=== PATIENT | male | born 1975 | race Caucasian/White ===

== ENCOUNTER 2020-08-31 15:19 | Emergency (ER) | payer SELFPAY ==
--- NOTE | 2020-08-31 | XR_ITS ---
EXAMINATION: RIGHT LOWER LEG AND LIMITED RIGHT ANKLE CLINICAL INFORMATION: Injury COMPARISON: None TECHNIQUE: 2 views of the right lower leg and oblique view of the right ankle FINDINGS: Right lower leg: Bone alignment is normal. No fracture or dislocation is seen. The joint spaces are normal. There is soft tissue ossifications adjacent to the tibial tubercle suggestive of old moderate disease. Soft tissues are otherwise unremarkable. Right ankle: Oblique view of the right ankle shows no fracture or dislocation. The ankle mortise is normal. Soft tissues are normal. XR/XR tibia fibula RT 2V IMPRESSION: Right lower leg: No acute fracture or dislocation. Evidence of old [place]-Schlatter's disease of the tibial tubercle. Right ankle: Unremarkable limited oblique view of the right ankle
--- NOTE | 2020-08-31 | XR_ITS ---
EXAMINATION: RIGHT LOWER LEG AND LIMITED RIGHT ANKLE CLINICAL INFORMATION: Injury COMPARISON: None TECHNIQUE: 2 views of the right lower leg and oblique view of the right ankle FINDINGS: Right lower leg: Bone alignment is normal. No fracture or dislocation is seen. The joint spaces are normal. There is soft tissue ossifications adjacent to the tibial tubercle suggestive of old moderate disease. Soft tissues are otherwise unremarkable. Right ankle: Oblique view of the right ankle shows no fracture or dislocation. The ankle mortise is normal. Soft tissues are normal. XR/XR ankle RT 2V IMPRESSION: Right lower leg: No acute fracture or dislocation. Evidence of old [place]-Schlatter's disease of the tibial tubercle. Right ankle: Unremarkable limited oblique view of the right ankle
[2020-08-31 16:04] VITALS: BP 96/79; PULSE 117; RESP 20; TEMP 37.1; O2SAT 97; BMI 46.9
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
--- NOTE | 2020-08-31 17:34 | XR_ITS ---
EXAMINATION: XR FOOT, RIGHT CLINICAL INFORMATION: Injury. COMPARISON: None TECHNIQUE: AP, lateral, and oblique views of the right foot. FINDINGS: The bones and soft tissues are normal. No fracture. Alignment is anatomic. Joint spaces are maintained. XR/XR foot RT min 3V IMPRESSION: Normal right foot.
[2020-08-31] MEDS: Ibuprofen 600 MG TABLET PO (17:40)
--- NOTE | 2020-08-31 18:40 | PC.NURSE ---
PT WAS BEING RUDE ABOUT WAIT AND HE WAS TOLD HIS SECOND IMAGING WAS NOT READY PT WAS ROCKING BACK AND FORTH IN CHAIR AND THEN DECIDED TO LAY ON FLOOR CHARGE NURSE TOLD HIM TO GET UP AND NOT LAY ON FLOOR AND THEN PCT JEFERSON WITNESS PT LEAVING.
== END 2020-08-31 18:43 | disposition left against medical advice (07) ==
PROVIDERS: Emergency Provider Emergency Medicine
DX: M79.604 Pain in right leg (principal); M25.571 Pain in right ankle and joints of right foot; M79.671 Pain in right foot
CPT/HCPCS: 73590; 73600; 73630; 99283

== ENCOUNTER 2021-08-06 14:17 | Emergency (ER) | payer SELFPAY ==
[2021-08-06 14:20] VITALS: BP 128/82; PULSE 104
[2021-08-06 14:38] VITALS: BP 119/62; PULSE 98; RESP 16; TEMP 37.2; O2SAT 98; BMI 21.1
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
[2021-08-06 16:48] VITALS: BP 128/68; PULSE 72; RESP 16
== END 2021-08-06 16:49 | disposition home or self-care (01) ==
PROVIDERS: Emergency Provider Emergency Medicine
DX: T40.1X1A Poisoning by heroin, accidental (unintentional), initial encounter (principal); R40.4 Transient alteration of awareness; Y92.810 Car as the place of occurrence of the external cause
CPT/HCPCS: 96374; 99283; 99284

== ENCOUNTER 2022-09-16 09:11 | Emergency (ER) | payer SELFPAY ==
[2022-09-16 09:12] VITALS: BP 150/90; PULSE 86; RESP 16; TEMP 35.7; O2SAT 99; BMI 20.9
--- NOTE | 2022-09-16 09:23 | ED.GENADULT ---
HPI - General Adult General Chief complaint: General Medical Stated complaint: dental pain Time Seen by Provider: 09/16/22 09:23 Source: patient Mode of arrival: ambulatory Limitations: no limitations History of Present Illness HPI narrative: Patient is a 47 year old assigned male at with a history of cigarette smoking presenting to the emergency department today with right sided mouth pain and swelling. Patient states that the right side of his mouth has been swelling and painful for the last week. Patient denies any dizziness, lightheadedness, abdominal pain, nausea, vomiting, fever, chills, blurry vision, double vision, loss of vision, chest pain, difficulty breathing, shortness of breath, back pain, night sweats, pain with urination, increased urinary frequency, increased urinary urgency, blood in his urine or stool, syncope or a near syncopal episode, recent trauma or falls, bowel incontinence, bladder incontinence, bowel retention, bladder retention, or any other complaints at this time. Onset (ago): week(s) (1) Location: face, mouth and right Radiation: non-radiation Severity: mild Severity scale (1-10): 2 Relieving factors: none Exacerbating factors: none Associated symptoms: denies other symptoms Treatments prior to arrival: none Related Data Previous Rx's Medication Instructions Recorded naloxone 4 mg/actuation nasal 4 mg intranasal Q2M PRN opioid 08/06/21 spray (Narcan) overdose #2 ea naproxen 500 mg tablet 500 mg PO BID 7 days #14 tabs 09/16/22 penicillin V potassium 500 mg 500 mg PO BID 10 days #20 tabs 09/16/22 tablet Allergies Allergy/AdvReac Type Severity Reaction Status Date / Time No Known Allergies Allergy Verified 08/06/21 14:45 Review of Systems Constitutional: Constitutional: Reports no additional constitutional complaints, Denies chills, Denies fever(s) and Denies night sweats Eyes: Eyes: Reports no additional eye complaints, Denies blurry vision, Denies change in vision, Denies diplopia, Denies eye discharge, Denies loss of vision and Denies eye pain ENT: Denies dizziness and Reports mouth pain Cardiovascular: Cardiovascular: Reports no additional cardiovascular complaints, Denies chest pain, Denies lightheadedness, Denies Loss of Consciousness and Denies dyspnea Respiratory: Respiratory: Reports no additional respiratory complaints and Denies dyspnea Gastrointestinal: Gastrointestinal: Reports no additional gastrointestinal complaints, Denies abdominal pain, Denies melena, Denies hematochezia, Denies change in bowel habits and Denies change in stool character Genitourinary: Genitourinary: Reports no additional male genitourinary complaints, Denies hematuria, Denies oliguria, Denies difficulty urinating, Denies dysuria, Denies urinary frequency, Denies urinary hesitancy, Denies urinary incontinence and Denies urinary urgency Musculoskeletal: Musculoskeletal: Reports no additional musculoskeletal complaints, Denies numbness and Denies tingling Neurologic: Denies dizziness, Denies loss of vision, Denies numbness and Denies tingling Psychiatric: Psychiatric: Reports no additional psychiatric complaints Endocrine: Endocrine: Reports no additional endocrine complaints Hematologic/Lymphatic: Hematologic/Lymphatic: Reports no additional hematologic/lymphatic complaints Allergic/Immunologic: Allergic/Immunologic: Reports no additional allergic/immunologic complaints PMFSH Past Medical History Attestation statement: The following information was validated with the patient. Source: old records reviewed and nursing notes reviewed Medical History No known health problems Social History Social History Advance Directives: No Advance Directives Information Provided: Yes Physical Exam ED Vital Signs: Vital Signs - 24 hr 09/16/22 09:12 Temperature 96.3 F L Pulse Rate 86 Respiratory Rate 16 Blood Pressure 150/90 H Pulse Oximetry 99 Oxygen Delivery Method Room Air BMI result Body Mass Index 20.9 Const General: cooperative, no acute distress, alert and awake Nutritional Appearance: well nourished Orientation/consciousness: patient oriented x3 Limitations: no limitations [facility] Head: Yes normal to inspection and Yes atraumatic Ears: hearing grossly normal bilaterally and external ears normal General nose exam: Normal external nose present, no nasal discharge noted and no epistaxis Face and sinus: Yes normal facial exam, No abrasion and No laceration Mouth: no drooling, no muffled voice and other (minimal swelling to the right cheek) Eyes General: appearance normal, both eyes and all related structures Periorbital: periorbital findings normal Eyelids: Yes eyelids normal Conjunctivae: conjunctivae normal Pupils: Equal, round and reactive pupils present EOM: EOMs intact bilaterally Neck Neck: Yes normal visual inspection, Yes full ROM and Yes no lymphadenopathy Chest Chest palpation & inspection: normal inspection of the chest Resp Effort & Inspection: normal respiratory effort and able to speak in complete sentences Auscultation: clear to auscultation bilaterally Cardio Rate: regular rate Rhythm: regular rhythm GI Inspection: Yes normal to inspection Neuro General: patient oriented x3 and moves all extremities Cranial nerves: Yes Equal, round and reactive pupils present Cognition (Neuro): normal cognition Motor exam (neuro): 5/5 motor strength present throughout Sensory Exam: Normal double simultaneous stimulation for sensation Coordination: [id number] test normal Extrem General: Yes normal to inspection, Yes full ROM and Yes capillary refill normal Psych Appearance: grossly normal Mental Status: mental status grossly normal Affect: normal affect Attitude: cooperative Thought process: Normal thought process present Thought content: Normal thought content present Insight: Good insight present (Psych) Medical Decision Making Medical Decision Making MDM Narrative: Patient is a 47 year old assigned male at with a history of cigarette smoking presenting to the emergency department today with right sided facial swelling. Patient's physical exam showed minimal right cheek swelling but was otherwise unremarkable. I explained my physical exam findings to the patient. I answered all questions asked by the patient. I stressed the importance of the patient taking his medication as prescribed. I stressed the importance of the patient following up with his primary care provider and a dentist. I stressed the importance of the patient returning to the emergency department immediately if his symptoms were to worsen or if he were to develop any dizziness, shortness of breath, difficulty breathing, chest pain, blurry vision, loss of vision, nausea, vomiting, abdominal pain, fever, chills, back pain, or any other complaints. Patient verbalized agreement and understanding with this treatment plan and discharge. Differential Diagnosis Differential Diagnoses: The differential diagnosis associated with the presentation includes facial swelling, dental abscess Discharge Plan Discharge Clinical Impression: Dental abscess Patient Disposition: Home, Self-Care Instructions: Dental Abscess (ED) Additional Instructions: Follow up with your primary care provider. Return to the emergency department immediately if your symptoms worsen or if you develop any dizziness, shortness of breath, difficulty breathing, chest pain, blurry vision, loss of vision, nausea, vomiting, abdominal pain, fever, chills, back pain, or any other complaints. Call or visit any of the clinics below to establish with a dentist: [facility] [address] [place] [id number] [facility] [address] [facility], [address] [address] [place] [address] [facility] [address] [address] [facility] [address] [place] [address] [place] [address] [place] [address] Prescriptions: New penicillin V potassium 500 mg tablet 500 mg PO BID 10 Days Qty: 20 0RF naproxen 500 mg tablet 500 mg PO BID 7 Days Qty: 14 0RF No Action Narcan 4 mg/actuation spray,non-aerosol 4 mg intranasal Q2M PRN (Reason: opioid overdose) Qty: 2 2RF Rx Instructions: spray 1 dose into ONE nostril; alternate nostrils w each dose until help arrives Referrals: [facility] [place] Group] (Call to establish and follow up with a primary care provider. If you already have a primary care provider, please follow up with them. ) [facility] [Provider Group] (Call to establish and follow up with a primary care provider. If you already have a primary care provider, please follow up with them. ) [facility] [Provider Group] (Call to establish and follow up with a primary care provider. If you already have a primary care provider, please follow up with them. ) Interventions: ED Discharge Assessment Last Done: 09/16/22 09:35 Discharge Date/Time: 09/16/22 09:37 Print Language: Georgian
== END 2022-09-16 09:37 | disposition home or self-care (01) ==
PROVIDERS: Emergency Provider Emergency Medicine
DX: K04.7 Periapical abscess without sinus (principal); K08.89 Other specified disorders of teeth and supporting structures
CPT/HCPCS: 99282; 99283

== ENCOUNTER 2024-01-09 12:49 | Emergency (ER) | payer SELFPAY ==
--- NOTE | ~2024-01-09 | US_ITS ---
EXAMINATION: US VENOUS ULTRASOUND WITH DOPPLER LOWER EXTREMITY, LEFT CLINICAL INFORMATION: Edema. COMPARISON: None available. TECHNIQUE: Ultrasound of the deep veins is performed from the hip to the calf with compression sonography and color and pulse Doppler assessment. Spectral analysis with color-flow imaging is performed. FINDINGS: There is normal venous compression and respiratory variation and augmented flow. The visualized common femoral vein, superficial femoral vein, profunda femoral vein, popliteal vein, and the trifurcation region shows no evidence of deep venous thrombosis. There is no significant popliteal fossa cyst. If the patient's symptoms persist, followup ultrasound in 5 days 7 days might be of value to exclude proximal propagation from a non-visualized calf vein. US/US venous duplex LE LT IMPRESSION: No DVT demonstrated in the left lower extremity.
[2024-01-09 13:39] VITALS: BP 164/85; PULSE 98; RESP 18; O2SAT 97; BMI 21.2
[2024-01-09 13:52] LABS: MANUAL DIFF FLAG NO
[2024-01-09 13:56] LABS: Basophils Percent Auto 0.3 % (0-2); Eosinophils Percent Auto 0.4 % (0-4); Hematocrit 39.9 % (42.0-52.0); Hemoglobin 14.2 g/dl (14.0-18.0); Imm Gran Abs Auto 0.03 X10*3/uL (0.00-0.03); Imm Gran Pct Auto 0.3 % (0.0-0.4); Lymphocytes Absolute Auto 1.8 X10*3/uL (1.2-4.9); Lymphocytes Percent Auto 16.5 % (20-40); Mean Corpuscular HGB Conc 35.6 g/dl (31.0-36.0); Mean Corpuscular Hemoglobin 35.8 pg (27.0-33.0); Mean Corpuscular Volume 100.5 fL (80.0-98.0); Mean Platelet Volume 9.2 fL (9.4-12.4); Monocytes Absolute Auto 1.2 X10*3/uL (0.1-1.2); Monocytes Percent Auto 10.9 % (2-11); Neutrophils Absolute Auto 7.7 x10*3/uL (2.0-8.3); Neutrophils Percent Auto 71.6 % (45-73); Platelet Count 216 X10*3/uL (160-400); Red Blood Count 3.97 X10*6/uL (4.60-5.80); Red Cell Distribution Width 11.9 % (11.0-16.0); White Blood Count 10.8 X10*3/uL (4.8-10.8)
[2024-01-09 14:19] LABS: Alanine Aminotransferase 22 U/L (0-40); Albumin Level 4.5 g/dL (3.5-5.0); Alkaline Phosphatase 106 U/L (39-117); Anion Gap 18 (12-20); Aspartate Amino Transferase 30 U/L (5-37); Bilirubin Total 0.8 mg/dL (0.0-1.0); Blood Urea Nitrogen 25 mg/dL (9-16); Calcium 10.2 mg/dL (8.4-10.2); Carbon Dioxide 28 mmol/L (22-29); Chloride 96 mmol/L (96-108); Creatinine Clr Calc Pharmacy 92.1; Estimated Glomerular Filt Rate > 60; Glucose Random 102 mg/dL (60-115); Lipase 18 U/L (8-78); Magnesium 1.9 mg/dL (1.6-2.6); Sodium 138 mmol/L (135-145); Total Protein 7.8 g/dL (6.5-8.0)
--- NOTE | 2024-01-09 14:45 | ED.LOWEXIN ---
HPI - Extremity Injury (Lower) General Chief Complaint: Extremity Injury, Lower Stated Complaint: L Leg Pain No Injury Related Data Previous Rx's ?Medication ?Instructions ?Recorded naloxone 4 mg/actuation nasal 4 mg intranasal Q2M PRN opioid 08/06/21 spray (Narcan) overdose #2 ea naproxen 500 mg tablet 500 mg PO BID 7 days #14 tabs 09/16/22 penicillin V potassium 500 mg 500 mg PO BID 10 days #20 tabs 09/16/22 tablet Allergies Allergy/AdvReac Type Severity Reaction Status Date / Time No Known Allergies Allergy Verified 01/09/24 13:42 [facility] Past Medical History Medical History No known health problems Social History Social History Advance Directives: No Advance Directives Information Provided: No Physical Exam Vital Signs: Vital Signs: Last Vital Signs Pulse 98 01/09/24 13:39 Resp 18 01/09/24 13:39 BP 164/85 H 01/09/24 13:39 Pulse Ox 97 01/09/24 13:39 O2 Del Method Room Air 01/09/24 13:39 BMI result Body Mass Index 21.2 Course Course Course Narrative: This is a Rapid Medical Examination (RME) performed by Wandy Sanders PA-C in triage. Full HPI, ROS, assessment and treatment plan per primary provider in the Main ED. 48 yo male here for eval of left thigh pain/ swelling x1 week. denies recent travel, long car rides. denies injury, trauma. also endorses b/l hand cramping. states it feels like i got hit by a bat . taking aspirin without relief. no upper respiratory symptoms. no sick contacts. exam limited in triage due to patients clothing. Plan: labs, cpk, venous duplex ordered. Reevaluation(s) Reevaluation #1: Patient left the ED without completing treatment. Medical Decision Making Lab Data 01/09/24 13:48 01/09/24 13:48 Labs: Lab Results 01/09/24 Range/Units 13:48 WBC 10.8 (4.8-10.8) X10*3/uL RBC 3.97 L (4.60-5.80) X10*6/uL Hgb 14.2 (14.0-18.0) g/dl Hct 39.9 L (42.0-52.0) % MCV 100.5 H (80.0-98.0) fL MCH 35.8 H (27.0-33.0) pg MCHC 35.6 (31.0-36.0) g/dl RDW 11.9 (11.0-16.0) % Plt Count 216 (160-400) X10*3/uL MPV 9.2 L (9.4-12.4) fL Immature Gran % (Auto) 0.3 (0.0-0.4) % Neut % (Auto) 71.6 (45-73) % Lymph % (Auto) 16.5 L (20-40) % [place] % (Auto) 10.9 (2-11) % Eos % (Auto) 0.4 (0-4) % Baso % (Auto) 0.3 (0-2) % Lymph # (Auto) 1.8 (1.2-4.9) X10*3/uL [place] # (Auto) 1.2 (0.1-1.2) X10*3/uL Eos # (Auto) 0.0 (0.0-0.4) X10*3/uL Baso # (Auto) 0.0 (0.0-0.2) X10*3/uL Abs Immat Gran (auto) 0.03 (0.00-0.03) X10*3/uL Absolute Neuts (auto) 7.7 (2.0-8.3) x10*3/uL Absolute Nucleated RBC 0.000 (0.0-0.012) X10*3/uL Nucleated RBC % (auto) 0.0 (0.0-0.2) /100WBC Sodium 138 (135-145) mmol/L Potassium 4.0 (3.3-5.1) mmol/L Chloride 96 (96-108) mmol/L Carbon Dioxide 28 (22-29) mmol/L Anion Gap 18 (12-20) BUN 25 H (9-16) mg/dL Creatinine 0.81 (0.5-1.4) mg/dL Estim Creat Clear Calc 92.1 Estimated GFR > 60 Random Glucose 102 (60-115) mg/dL Calcium 10.2 (8.4-10.2) mg/dL Magnesium 1.9 (1.6-2.6) mg/dL Total Bilirubin 0.8 (0.0-1.0) mg/dL AST 30 (5-37) U/L ALT 22 (0-40) U/L Alkaline Phosphatase 106 (39-117) U/L Total Creatine Kinase 139 (38-174) U/L Total Protein 7.8 (6.5-8.0) g/dL Albumin 4.5 (3.5-5.0) g/dL Lipase 18 (8-78) U/L Discharge Plan Discharge Clinical Impression: Left thigh pain Patient Disposition: Left W/O Completing Treatment Prescriptions: No Action penicillin V potassium 500 mg tablet 500 mg PO BID 10 Days Qty: 20 0RF naproxen 500 mg tablet 500 mg PO BID 7 Days Qty: 14 0RF Narcan 4 mg/actuation spray,non-aerosol 4 mg intranasal Q2M PRN (Reason: opioid overdose) Qty: 2 2RF Rx Instructions: spray 1 dose into ONE nostril; alternate nostrils w each dose until help arrives Discharge Date/Time: 01/09/24 19:35
--- NOTE | 2024-01-09 19:26 | PC.NURSE ---
No response in the WR @ 1914. T/w calling cell phone listed but line busy.
== END 2024-01-09 19:35 | disposition left against medical advice (07) ==
PROVIDERS: Physician Assistant Medical; Emergency Provider Emergency Medicine
DX: M79.652 Pain in left thigh (principal); R60.0 Localized edema; Z79.899 Other long term (current) drug therapy
CPT/HCPCS: 36415; 80053; 82550; 83690; 83735; 85025; 93971; 99281; 99284

== ENCOUNTER 2024-10-28 11:26 | Outpatient (REF) | payer MEDICAID, SELFPAY ==
[2024-10-28 13:15] LABS: MANUAL DIFF FLAG NO
[2024-10-28 13:36] LABS: Basophils Percent Auto 0.4 % (0-2); Eosinophils Absolute Auto 0.2 X10*3/uL (0.0-0.4); Eosinophils Percent Auto 1.9 % (0-4); Hematocrit 45.9 % (42.0-52.0); Hemoglobin 15.8 g/dl (14.0-18.0); Imm Gran Abs Auto 0.04 X10*3/uL (0.00-0.03); Imm Gran Pct Auto 0.5 % (0.0-0.4); Lymphocytes Absolute Auto 2.2 X10*3/uL (1.2-4.9); Lymphocytes Percent Auto 27.3 % (20-40); Mean Corpuscular HGB Conc 34.4 g/dl (31.0-36.0); Mean Corpuscular Volume 98.7 fL (80.0-98.0); Mean Platelet Volume 10.2 fL (9.4-12.4); Monocytes Absolute Auto 0.7 X10*3/uL (0.1-1.2); Monocytes Percent Auto 9.1 % (2-11); Neutrophils Absolute Auto 4.9 x10*3/uL (2.0-8.3); Neutrophils Percent Auto 60.8 % (45-73); Platelet Count 313 X10*3/uL (160-400); Red Blood Count 4.65 X10*6/uL (4.60-5.80); Red Cell Distribution Width 12.2 % (11.0-16.0); White Blood Count 8.1 X10*3/uL (4.8-10.8)
[2024-10-28 13:37] LABS: INTERNATIONAL NORM RATIO 0.8 (0.9-1.1); Prothrombin Time 9.6 SEC (10.9-12.4)
[2024-10-28 14:02] LABS: Alanine Aminotransferase 59 U/L (0-40); Albumin Level 4.4 g/dL (3.5-5.0); Alkaline Phosphatase 113 U/L (39-117); Aspartate Amino Transferase 39 U/L (5-37); Bilirubin Direct < 0.2 mg/dL (0.0-0.5); Bilirubin Total 0.2 mg/dL (0.0-1.0); Blood Urea Nitrogen 20 mg/dL (9-16); Estimated Glomerular Filt Rate > 60
--- OUTSIDE RECORDS SUMMARY | 2024-10-28 14:05 | XMS_ITS | Encounter Summary ---
Author Organization [employer] Address [address] [facility] [address] [place] [address] Care Team Providers Care Mobile Device Developer Name Role Phone Unavailable Primary Care Provider Unavailabl e Encounter Details Date Type Department Care Team (Latest Contact Info) Description 10/28/2024 Travel Social History Tobacco Use Types Packs/Day Years Used Date Smoking Tobacco: Never Assessed Sex and Gender Information Value Date Recorded Sex Assigned at Male 10/28/2024 10:18 AM EST Legal Sex Male 9:01 AM EST Gender Identity Male 10/28/2024 10:18 AM EST Sexual Orientation Straight 10/28/2024 10 :18 AM EST documented as of this encounter Plan of Treatment Upcoming Encounters Date Type Department Care Team (Late st Contact Info) Description 11/04/2024 10:00 AM EST Office Visit [facility] [address] [place] [address] Rafael Prieto MD [address] [place] [address] documented as of this encounter Visit Diagnoses Not on filedocumented in this encounter
--- OUTSIDE RECORDS SUMMARY | 2024-10-28 14:05 | XMS_ITS | Clinical Summary ---
Author Organization [employer] Address [address] [facility] [address] [place] [address] Care Team Providers Care Shop Service Technician Name Role Phone Unavailable Primary Care Provider Unavailabl e Allergies No known active allergies Medications * This document contains information received from the source organization and may not represent a complete record from that organization. naltrexone (Depade) 50 MG tabletIndication s:Alcohol use disorder, severe, dependence (CMS/HCC) Take 1/2 tablet PO once daily x 2 days, then 1 pill PO once daily. May take with food. 15 tablet 10/28/2024 Active Active Problems Problem Noted Date Diagnosed Date Alcohol use disorder 10/28/2024 History of substance use 10/28/2024 Encounters * This document contains information received from the source organization and may not represent a complete record from that organization. Date Type Department Care Team Description 10/28/2024 11:00 AM EST Office Visit [facility] [address] [place] [phone] Rafael Prieto MD Alcohol abuse, uncomplicated (Primary Dx); Alcohol use disorder, severe, dependence (CMS/HCC); Tobacco use disorder 10/28/2024 Travel 10/21/2024 Patient Outreach [facility] [address] [place] [phone] Alejandro Jaime Recovery Supports from Last 3 Months Social History Tobacco Use Types Packs/Day Years Used Date Smoking Tobacco: Never Assessed Sex and Gender Information Value Date Recorded Sex Assigned at Male 10/28/2024 10:18 AM EST Legal Sex Male 9:01 AM EST Gender Identity Male 10/28/2024 10:18 AM EST Sexual Orientation Straight 10/28/2024 10 :18 AM EST Plan of Treatment Upcoming Encounters Date Type Department Care Team ([facility] st Contact Info) Description 11/04/2024 10:00 AM EST Office Visit [facility] [address] [place] [phone] Rafael Prieto MD [address] [place] [address] Health Maintenance Due Date Last Done Comments CT Colonography 1973 Colonoscopy 1973 Colorectal Cancer Screening 1973 Depression Screening 1973 FIT DNA/Cologuard 1973 FIT 1973 FOBT 1973 HIV Screening 1973 Lipid Panel 1973 SDOH Screening 1973 Sigmoidoscopy 1973 Alcohol/Substance Use Screening 1985 Tobacco Screening 1985 Family Planning (PISQ) 1988 Hepatitis C Screening 1991 Hepatitis A Vaccines (1 of 2 - Risk 2-dose series) 1992 Hepatitis B Vaccines (1 of 3 - 19+ 3-dose series) 1992 Pneumococcal Vaccine: 50+ Ye ars (1 of 2 - PCV) 1992 DTaP/Tdap/Td Vaccines (2 - T d or Tdap) 06/13/2022 06/13/2012 Zoster Vaccines (1 of 2) 2023 COVID-19 Vaccine ( - 2023-2 5 season) 2024 Influenza Vaccine (#1) 2024 RSV Patients and Pa tients Aged 60 years or older (1 - 1-dose 75+ series) 2048 HIB Vaccines Aged Out No longer eligi ble based on patient's age to complete this topic HPV Vaccines Aged Out No longer eligi ble based on patient's age to complete this topic IPV Vaccines Aged Out No longer eligi ble based on patient's age to complete this topic Meningococcal Vaccine Aged Out No husam josee eligible based on patient's age to complete this topic RSV under 20 months Aged Out No longe r eligible based on patient's age to complete this topic Rotavirus Vaccines Aged Out No longer eligible based on patient's age to complete this topic Procedures Procedure Name Priority Date/Time Associated Diagnosis Comments PROTHROMBIN TIME-INR Routine 10/28/2024 11:29 AM EST Alcohol use disorder, severe, dependence (CMS/HCC) CBC WITH AUTO DIFFERENTIAL Routine 10/28/2024 11:29 AM EST Alcohol abuse, uncomplicated UREA NITROGEN (BUN) Routine 10/28/2024 1 1:29 AM EST Alcohol abuse, uncomplicated CREATININE, SERUM Routine 10/28/2024 11: 29 AM EST Alcohol abuse, uncomplicated HEPATIC FUNCTION PANEL Routine 10/28/2024 11:29 AM EST Alcohol abuse, uncomplicated POCT MARY ELLEN-14 URINE DRUG SCREEN Routine 10/28/2024 10:59 AM EST Alcohol abuse, uncomplicated from Last 3 Months Results * Creatinine, Serum (10/28/2024 11:29 AM EST) Creatinine, Serum 0.82 0.5 - 1.4 mg/dL [facility] Estimated Glomerular Filt Rate >60 [facility] Comment:Chronic Kidney Disea se: Estimated GFR < 60 mL/min/[id number] Kidney Disease: Estimated GFR < 15 mL/min/1.73m2 Blood 10/28/2024 11:2 9 AM EST 10/28/2024 1:06 PM EST us Rafael Prieto MD LAB BLOOD ORDERABLES Final Res ult [facility] [place] [phone] * (ABNORMAL) CBC auto differential (10/28/2024 11:29 AM EST) White Blood Count 8.1 4.8 - 10.8 X10*3/uL [facility] Red Blood Count 4.65 4.60 - 5.80 X10*6/uL [facility] Hemoglobin 15.8 14.0 - 18.0 g/dl [facility] Hematocrit 45.9 42.0 - 52.0 % [facility] Mean Corpuscular Volume 98.7(H) 80.0 - 98.0 fL [facility] Mean Corpuscular Hemoglobin 34.0(H) 27.0 - 33.0 pg [facility] Mean Corpuscular HGB Conc 34.4 31.0 - 36.0 g/dl [facility] Red Cell Distribution Width 12.2 11.0 - 16.0 % [facility] Platelet Count 313 160 - 400 X10*3/uL [facility] Mean Platelet Volume 10.2 9.4 - 12.4 fL [facility] Neutrophils Percent Auto 60.8 45 - 73 % [facility] Imm Gran Pct Auto 0.5(H) 0.0 - 0.4 % [facility] Lymphocytes Percent Auto 27.3 20 - 40 % [facility] Monocytes Percent Auto 9.1 2 - 11 % [facility] Eosinophils Percent Auto 1.9 0 - 4 % [facility] Basophils Percent Auto 0.4 0 - 2 % [facility] NRBC Pct Auto 0.0 0.0 - 0.2 /100WBC [facility] Neutrophils Absolute Auto 4.9 2.0 - 8.3 x10*3/uL [facility] Imm Gran Abs Auto 0.04(H) 0.00 - 0.03 X10*3/uL [facility] Lymphocytes Absolute Auto 2.2 1.2 - 4.9 X10*3/uL [facility] Monocytes Absolute Auto 0.7 0.1 - 1.2 X10*3/uL [facility] Eosinophils Absolute Auto 0.2 0.0 - 0.4 X10*3/uL [facility] Basophils Absolute Auto 0.0 0.0 - 0.2 X10*3/uL [facility] NRBC Abs Auto 0.000 0.0 - 0.012 X10*3/uL [facility] Blood Venous blood specimen / Unknown 10/28/2024 11:29 AM EST 10/28/2024 1:08 PM EST Rafael Prieto MD LAB BLOOD ORDERABLES Final Res ult Performing Organization Address [facility]/ZIP Co de Phone Number [facility] [address] [place] [phone] * (ABNORMAL) Prothrombin Time-INR (10/28/2024 11:29 AM EST) Prothrombin Time 9.6(L) 10.9 - 12.4 SEC [facility] INTERNATIONAL NORM RATIO 0.8(L) 0.9 - 1.1 [facility] Comment:INTERNATIONAL NORMAL IZED RATIO (INR) REFERENCE RANGES Reference RangeFor patients not on anticoagulant therapy: 0.9 - 1.1INR ranges for oral anticoagulanttherapy:For prevention and treatment of venous thrombosis and pulmonary embolism: 2.0 - 3.0For acute myocardial infarction with aspirin therapy: 2.0 - 3.0For acute myocardial infarction without aspirin therapy: 3.0 - 4.0For patients with mechanical prosthetic heart valves: 2.5 - 3.5 Blood Venous blood specimen / Unknown 10/28/2024 11:29 AM EST 10/28/2024 1:08 PM EST Rafael Prieto MD LAB BLOOD ORDERABLES Final Res ult Performing Organization Address [facility] Co de Phone Number [facility] [address] [place] [phone] * (ABNORMAL) BUN (Blood Urea Nitrogen) (10/28/2024 11:29 AM EST) Urea Nitrogen (BUN) 20(H) 9 - 16 mg/dL [facility] Blood Venous blood specimen / Unknown 10/28/2024 11:29 AM EST 10/28/2024 1:06 PM EST Rafael Prieto MD LAB BLOOD ORDERABLES Final Res ult Performing Organization Address City/[facility]/ZIP Co de Phone Number [facility] [address] [place] [phone] * (ABNORMAL) Hepatic Function Panel (10/28/2024 11:29 AM EST) Bilirubin, Total 0.2 0.0 - 1.0 mg/dL [facility] Bilirubin, Direct <0.2 0.0 - 0.5 mg/dL [facility] Aspartate Amino Transferase 39(H) 5 - 37 U/L [facility] Alanine Aminotransferase 59(H) 0 - 40 U/L [facility] Total Protein 8.0 6.5 - 8.0 g/dL [facility] Albumin Level 4.4 3.5 - 5.0 g/dL [facility] Alkaline Phosphatase 113 39 - 117 U/L [facility] Blood Venous blood specimen / Unknown 10/28/2024 11:29 AM EST 10/28/2024 1:06 PM EST Rafael Prieto MD LAB BLOOD ORDERABLES Final Res ult [facility] [address] [place] [phone] * POCT MARY ELLEN-14 Urine Drug Screen (10/28/2024 10:59 AM EST) THC Negative Cocaine Screen, Urine Negative Opiate Screen, Urine Negative Methamphetamine Screen Urine Negative Amphetamine Screen, Urine Negative Benzodiazepines Screen, Urine Negative Barbiturate Screen, Urine Negative Methadone Screen, Urine Negative Buprenophine Screen, Urine Negative TCA, Urine Negative MDMA Urine Negative ng/mL Oxycodone Screen, Urine Negative Phencyclidine (PCP), Urine Negative Propoxyphene, Urine Negative Fentanyl, Urine Negative Urine Urine specimen obtained by clean catch procedure / Unknown 10/28/2024 10:59 AM EST us Rafael Prieto MD POINT OF CARE TEST ENTER/EDIT ORDERABLES Final Result from Last 3 Months Insurance [facility] C3
--- OUTSIDE RECORDS SUMMARY | 2024-10-28 14:05 | XMS_ITS | Encounter Summary ---
Author Organization [employer] Address [address] [facility] [address] [place] [address] Care Team Providers Care Sheet Heater Helper Name Role Phone Unavailable Primary Care Provider Unavailabl e Reason for Visit * Reason Comments AUD NEW PT Encounter Details Date Type Department Care Team (Latest Contact Info) Description 10/28/2024 11:00 AM EST Office Visit [facility] [address] [place] [phone] Rafael Prieto MD [address] [place] [address] [phone] Alcohol abuse, uncomplicated (Primary Dx); Alcohol use disorder, severe, dependence (CMS/HCC); Tobacco use disorder Social History Tobacco Use Types Packs/Day Years [...] Description 11/04/2024 10:00 AM EST Office Visit [facility] [address] [place] [phone] Rafael Prieto MD [address] [place] [address] [phone] Scheduled Orders Name Type Priority Associated Diagnoses Orde r Schedule Hepatitis C Antibody with Reflex to HCV, RNA, Quantitative, Real-Time PCR Lab Routine Alcohol abuse, uncomplicated Expected: 10/28/2024 (Approximate), Expires: 10/28/2025 Hepatitis B Core Antibody, Total Lab Routine Alcohol abuse, uncomplicated Expected: 10/28/2024 (Approximate), Expires: 10/28/2025 Hepatitis A Antibody, Total Lab Routine Alcohol abuse, uncomplicated Expected: 10/28/2024 (Approximate), Expires: 10/28/2025 T-SPOT??.TB Lab Routine Alcohol abuse, uncomplicated Expected: 10/28/2024 (Approximate), Expires: 10/28/2025 HIV-1/2 Antigen and Antibodies, Fourth Generation, with Reflexes Lab Routine Alcohol abuse, uncomplicated Expected: 10/28/2024 (Approximate), Expires: 10/28/2025 RPR (Monitor) with Reflex to??Titer Lab Routine Alcohol abuse, uncomplicated Expected: 10/28/2024, Expires: 10/28/2025 Hepatitis B surface antigen, EIA Lab Routine Alcohol abuse, uncomplicated Expected: 10/28/2024 (Approximate), Expires: 10/28/2025 Hepatitis B Core Antibody, Total Lab Routine Alcohol abuse, uncomplicated Expected: 10/28/2024 (Approximate), Expires: 10/28/2025 documented as of this encounter Procedures Procedure Name Priority Date/Time Associated Diagnosis Comments CREATININE, SERUM Routine 10/28/2024 11: 29 AM EST Alcohol abuse, uncomplicated CBC WITH AUTO DIFFERENTIAL Routine 10/28/2024 11:29 AM EST Alcohol abuse, uncomplicated PROTHROMBIN TIME-INR Routine 10/28/2024 11:29 AM EST Alcohol use disorder, severe, dependence (CMS/HCC) UREA NITROGEN (BUN) Routine 10/28/2024 1 1:29 AM EST Alcohol abuse, uncomplicated HEPATIC FUNCTION PANEL Routine 10/28/2024 11:29 AM EST Alcohol abuse, uncomplicated POCT MARY ELLEN-14 URINE DRUG SCREEN Routine 10/28/2024 10:59 AM EST Alcohol abuse, uncomplicated documented in this encounter Results * (ABNORMAL) Prothrombin Time-INR (10/28/2024 11:29 AM EST) Prothrombin Time 9.6(L) 10.9 - 12.4 SEC [facility] INTERNATIONAL NORM RATIO 0.8(L) 0.9 - 1.1 [facility] Comment:INTERNATIONAL NORMAL IZED RATIO (INR) [...] 11:29 AM EST 10/28/2024 1:08 PM EST us Rafael Prieto MD LAB BLOOD ORDERABLES Final Res ult [facility] [address] [place] [address] [phone] * (ABNORMAL) CBC auto differential (10/28/2024 11:29 AM EST) White Blood Count 8.1 4.8 - 10.8 X10*3/uL [facility] Red Blood Count 4.65 4.60 - 5.80 X10*6/uL [facility] Hemoglobin 15.8 14.0 - 18.0 g/dl [facility] Hematocrit 45.9 42.0 - 52.0 % [facility] Mean Corpuscular Volume 98.7(H) 80.0 - 98.0 fL [facility] Mean Corpuscular Hemoglobin 34.0(H) 27.0 - 33.0 pg [facility] Mean Corpuscular HGB Conc 34.4 31.0 - 36.0 g/dl [facility] Red Cell Distribution Width 12.2 11.0 - 16.0 % [facility] Platelet Count 313 160 - 400 X10*3/uL [facility] Mean Platelet Volume 10.2 9.4 - 12.4 fL [facility] Neutrophils Percent Auto 60.8 45 - 73 % [facility] Imm Gran Pct Auto 0.5(H) 0.0 - 0.4 % [facility] Lymphocytes Percent Auto 27.3 20 - 40 % [facility] Monocytes Percent Auto 9.1 2 - 11 % [facility] Eosinophils Percent Auto 1.9 0 - 4 % [facility] Basophils Percent Auto 0.4 0 - 2 % [facility] NRBC Pct Auto 0.0 0.0 - 0.2 /100WBC [facility] Neutrophils Absolute Auto 4.9 2.0 - 8.3 x10*3/uL [facility] Imm Gran Abs Auto 0.04(H) 0.00 - 0.03 X10*3/uL [facility] Lymphocytes Absolute Auto 2.2 1.2 - 4.9 X10*3/uL [facility] Monocytes Absolute Auto 0.7 0.1 - 1.2 X10*3/uL [facility] Eosinophils Absolute Auto 0.2 0.0 - 0.4 X10*3/uL [facility] Basophils Absolute Auto 0.0 0.0 - 0.2 X10*3/uL [facility] NRBC Abs Auto 0.000 0.0 - 0.012 X10*3/uL [facility] Blood Venous blood specimen / Unknown 10/28/2024 11:29 AM EST 10/28/2024 1:08 PM EST us Rafael Prieto MD LAB BLOOD ORDERABLES Final Res ult Performing Organization Address City/State/[facility] Co de Phone Number [facility] [address] [place] [phone] * (ABNORMAL) BUN (Blood Urea Nitrogen) (10/28/2024 11:29 AM EST) Urea Nitrogen (BUN) 20(H) 9 - 16 mg/dL [facility] Blood Venous blood specimen / Unknown 10/28/2024 11:29 AM EST 10/28/2024 1:06 PM EST Rafael Prieto MD LAB BLOOD ORDERABLES Final Res ult Performing Organization Address City/[facility]/ZIP Co de Phone Number [facility] [address] [place] [phone] * Creatinine, Serum (10/28/2024 11:29 AM EST) Creatinine, Serum 0.82 0.5 - 1.4 mg/dL [facility] Estimated Glomerular Filt Rate >60 [facility] Comment:Chronic Kidney Disea se: Estimated GFR < 60 mL/min/1.60b0Dyomfh Kidney Disease: Estimated GFR < 15 mL/min/1.73m2 Blood 10/28/2024 11:2 9 AM EST 10/28/2024 1:06 PM EST Rafael Prieto MD LAB BLOOD ORDERABLES Final Res ult Performing Organization Address [facility] Co de Phone Number [facility] [address] [place] [phone] * (ABNORMAL) Hepatic Function Panel (10/28/2024 11:29 AM EST) Bilirubin, Total 0.2 0.0 - 1.0 mg/dL [facility] Bilirubin, Direct <0.2 0.0 - 0.5 mg/dL [facility] Aspartate Amino Transferase 39(H) 5 - 37 U/L [facility] Alanine Aminotransferase 59(H) 0 - 40 U/L [facility] Total Protein 8.0 6.5 - 8.0 g/dL [facility] Albumin Level 4.4 3.5 - 5.0 g/dL [facility] Alkaline Phosphatase 113 39 - 117 U/L [facility] Blood Venous blood specimen / Unknown 10/28/2024 11:29 AM EST 10/28/2024 1:06 PM EST Rafael Prieto MD LAB BLOOD ORDERABLES Final Res ult [facility] [address] [place] [phone] * POCT MARY ELLEN-14 Urine Drug [...] OF CARE TEST ENTER/EDIT ORDERABLES Final Result documented in this encounter Visit Diagnoses Diagnosis Alcohol abuse, uncomplicated- Primary Alcohol use disorder, severe, dependence (CMS/HCC) Tobacco use disorder documented in this encounter
--- OUTSIDE RECORDS SUMMARY | 2024-10-28 14:05 | XMS_ITS | Clinical Summary ---
Author Organization [facility] ity Address [address] [place] [address] Care Team Providers Care Director Career Services Name Role Phone Unavailable Primary Care Provider Unavailabl e Social History Tobacco Use Types Packs/Day Years Used Date Smoking Tobacco: Never Assessed Sex and Gender Information Value Date Recorded Sex Assigned at Not on file Legal Sex Male 3:42 PM EDT Gender Identity Not on file Sexual Orientation Not on file Plan of Treatment Health Maintenance Due Date Last Done Comments DTaP,Tdap,and Td Vaccines (1 - Tdap) 1992 Hepatitis B Vaccines (1 of 3 - 19+ 3-dose series) 1992 Pneumococcal Vaccine: 50+ Ye ars (1 of 1 - PCV) 2023 Zoster Vaccines (1 of 2) 2023 COVID-19 Vaccine ( - 2023-2 5 season) 2024 Influenza Vaccine (#1) 2024 Cholesterol Screening (Lipid Panel) 06/29/2024 Colorectal Cancer Screening: Colonoscopy 06/29/2024 Depression Screening 06/29/2024 HIV Screening 06/29/2024 Hepatitis C Screening 06/29/2024 Social Influencers of Health Screening 06/29/2024 HIB Vaccines Aged Out No longer eligi ble based on patient's age to complete this topic HPV Vaccines Aged Out No longer eligi ble based on patient's age to complete this topic Hepatitis A Vaccines Aged Out No long er eligible based on patient's age to complete this topic IPV Vaccines Aged Out No longer eligi ble based on patient's age to complete this topic MMR Vaccines Aged Out No longer eligi ble based on patient's age to complete this topic Meningococcal ACWY Vaccine Aged Out N o longer eligible based on patient's age to complete this topic Meningococcal B Vacine Aged Out No lo nger eligible based on patient's age to complete this topic Pneumococcal Vaccine: Pediat rics (0 to 5 Years) and At-Risk Patients (6 to 64 Years) Aged Out No longer eligible b ased on patient's age to complete this topic RSV Immunization Patients Un lorenza 20 months Aged Out No longer eligible b ased on patient's age to complete this topic Varicella Vaccines Aged Out No longer eligible based on patient's age to complete this topic
--- OUTSIDE RECORDS SUMMARY | 2024-10-28 14:05 | XMS_ITS | Encounter Summary ---
Author Organization [employer] Address [address] [facility] [address] [place] [address] Care Team Providers Care Survey Technologist Name Role Phone Unavailable Primary Care Provider Unavailabl e Reason for Visit * Reason Comments Recovery Supports Encounter Details Date Type Department Care Team (Late st Contact Info) Description 10/21/[address] [facility] [address] [place] [address] [phone] Alejandro Jaime Recovery Supports Social History Tobacco Use Types Packs/Day Years Used Date Smoking Tobacco: Never Assessed Sex and Gender Information Value Date Recorded Sex Assigned at Male 10/28/2024 10:18 AM EST Legal Sex Male 9:01 AM EST Gender Identity Male 10/28/2024 10:18 AM EST Sexual Orientation Straight 10/28/2024 10 :18 AM EST documented as of this encounter Progress Notes * Alejandro Jaime - 10/21/2024 4:06 PM EST I met with Manuel today. Setting: in person at [facility] Recovery Wellness Goals worked on: Social Stability Action taken/next steps: Referred to medical or behavioral health professional and Assisted with accessing benefits (insurance, SNAP, etc.) Additional comments: The patient arrived at the center seeking help for the program. We were able to change their healthinsurance, and then we scheduled an appointment for him. Additionally, we provided orientation about the center and all the different services we offer. Alejandro Jaime documented in this encounter Plan of Treatment Upcoming Encounters Date Type Department Care Team (Late st Contact Info) Description 11/04/2024 10:00 AM EST Office Visit [facility] [address] [place] [address] [phone] Rafael Prieto MD [address] [place] [address] documented as of this encounter Visit Diagnoses Not on filedocumented in this encounter
[2024-10-29 08:35] LABS: HBc Num1 0.09 S/CO (0.00-0.79); HBsAGNum1 0.25 S/CO (0.00-0.99); HIV AB/AG Nonreactive (Nonreactive); HIV Num 1 0.05 S/CO (0.00-0.99); Hepatitis B Core Antibody Nonreactive (Nonreactive); Hepatitis B Surface Antigen Negative (Negative); ~HepC Num1 0.16 S/CO (0.00-0.79); ~Hepatitis C Antibody Nonreactive (Nonreactive)
[2024-10-29 08:42] LABS: Hepatitis A Antibody IgG Nonreactive (Nonreactive); ~Hepatitis A Antibody IgG 0.31 S/CO (0.00-0.99)
[2024-10-30 09:28] LABS: RPR Rapid Plasma Reagin NON-REACTIVE (NON-REACTIVE)
[2024-10-31 16:38] LABS: TS Negative Control Passed; TS Panel A 0; TS Panel B 0; TS Positive Control Passed; TSpotTB Negative (Negative)
== END 2024-10-28 11:27 | disposition home or self-care (01) ==
LOC: HO.HHCL 11:26
PROVIDERS: Visit Provider Emergency Medicine
DX: F10.10 Alcohol abuse, uncomplicated (principal); F10.20 Alcohol dependence, uncomplicated; Z11.59 Encounter for screening for other viral diseases; Z11.1 Encounter for screening for respiratory tuberculosis
CPT/HCPCS: 36415; 80076; 82565; 84520; 85025; 85610; 86481; 86592; 86704; 86708; 86803; 87340; 87389

== ENCOUNTER 2024-11-11 09:52 | Outpatient (REF) | payer MEDICAID, SELFPAY ==
--- OUTSIDE RECORDS SUMMARY | 2024-11-11 11:17 | XMS_ITS | Encounter Summary ---
Author Organization [employer] Address [address] [place] [address] [address] [place] [address] Care Team Providers Care Capital Project Engineer Name Role Phone Unavailable Primary Care Provider Unavailabl e Reason for Visit * Reason Comments AUD F/U Encounter Details Date Type Department Care Team (Late st Contact Info) Description 11/04/2024 10:00 AM EST Office Visit [facility] [address] [place] [address] Rafael Prieto MD [address] [place] [address] Alcohol use disorder, severe, dependence (CMS/HCC) (Primary Dx); Tobacco use disorder Social History Tobacco Use Types Packs/Day Years Used Date Smoking Tobacco: Never Assessed Depression Answer Date Recorded Patient Health Questionnaire-9 Score 0 10/28/2024 Patient Health Questionnaire-9 Score 0 10/28/2024 Last PHQ-9: Questionnaire Data Not on file 0 10/28/2024 Depression Answer Date Recorded Patient Health Questionnaire-2 Score 0 10/28/2024 Sex and Gender Information Value Date Recorded Sex Assigned at Male 10/28/2024 10:18 AM EST Legal Sex Male 9:01 AM EST Gender Identity Male 10/28/2024 10:18 AM EST Sexual Orientation Straight 10/28/2024 10 :18 AM EST documented as of this encounter Last Filed Vital Signs Vital Sign Reading Time Taken Comments Blood Pressure 144/87 11/04/2024 9:37 AM EST Pulse 95 11/04/2024 9:37 AM EST Temperature 37.2 ??C (98.9 ??F) 11/04/2024 9:37 AM ES T Respiratory Rate 20 11/04/2024 9:37 AM EST Oxygen Saturation - - Inhaled Oxygen Concentration - - Weight - - Height - - Body Mass Index - - documented in this encounter Progress Notes * Rafael Prieto MD - 11/04/2024 10:00 AM EST Patient presents today for AUD f/u. 10/28/24 Alcohol use disorder, severe, dependence (CMS/HCC) 49 y.o male who is here today for evaluation and possible Rx for alcohol use disorder Utox neg DSM 5 AUD 03/13 Vitamins Started drinking heavily ~ 4 years ago, related to his father dying. Was drinking ~ 1 sleeve a day and 2 Guinness beers. He was incarcerated 09/13/24 and released 10 days ago. Detox during incarceration x 5 days. No alcohol since incarceration. Feeling better. Still has some cravings. THC, no other substance use. Smokes 1PPD for many years. Has tried hypnosis in the past and NRT (? patches only). Has been with the same partner for over 10 years. No other sexual partners. No known active medical problems. Denies any past Rx for psychiatric problems. States it's important to connect with a psychiatrist and a therapist as the court has ordered Rx. He's also interested in connecting with a recovery advocate. Needs a PCP. Was on Suboxone till ~ 3 months ago. Stopped cold turkey. Hx of percocet and opioid use. None sincediscontinued Suboxone. No known liver disease, no hx pancreatitis. On medicine for GI reflux many years ago. May have vomited blood once. He has never been Rxed for AUD and is interested in starting Rx now. He and his fiance have an 11 y.o. He and his fiance are seeing each other every day. However, per court, he can go or stay at her place until he receives Rx. 49 y.o. male with AUD, severe, by DSM V criteria. No alcohol since 09/13/24. No WD symptoms. Some cravings. No other substance use. No suboxone x 3 months. Interested in Rx which is also mandated by he court. Agrees to starting Nalrexone and will consider Vivitrol. Possible ADRs reviewed with attention to depression and suicidal to thought and actions to take. Met with Wandy Ramos team therapist and will be referred to Morgan Hodges, psychiatric nurse practitioner. He went to [facility] to connect with a recovery advocate. Given flyer of support groups available. Labs today. Rx folic acid and thiamine on f/u. F/U 1 week. Today 11/04/24 Utox Neg, BAL 0 His fiance is with him. Doing well. No alcohol. No real cravings. Naltrexone without ADRs. Doesn't feel anything but thinks it may be helping. No substance use. Smoking unchanged, ~ 1PPD. Now interested in working on this. Now is able to stay in his home with his fiance and child. To see Rachel Saba team therapist. He now says he does not need a referral to a psych Rxer. Went to [facility] prior to this visit. Still needs a PCP. Asked if his labs included a BS. Objective Physical Exam Constitutional: Appearance: Normal appearance. Neurological: Mental Status: He is alert and oriented to person, place, and time. Psychiatric: Mood and Affect: Mood normal. Behavior: Behavior normal. Thought Content: Thought content normal. Assessment/Plan Alcohol use disorder, severe, dependence (CMS/HCC) Utox Neg, BAL 0 His fiance is with him. Doing well. No alcohol. No real cravings. Naltrexone without ADRs. Doesn't feel anything but thinks it may be helping. No substance use. Smoking unchanged, ~ 1PPD. Now interested in working on this. Now is able to stay in his home with his fiance and child. To see olivia Lo therapist. He now says he does not need a referral to a psych Rxer. Went to [facility] prior to this visit. Still needs a PCP. Asked if his labs included a BS. By hx, doing well. Continues to abstain. Naltrexone without ADRs. Reviewed labs. I did not include HbsAb in initial labs. I [place] [facility] [place] and was told it would be added. Sent new requisition. Informed patient who agrees to return to the lab. I also ordered a FBS and lipid profile. Congratulated on his effort. Rxed folic acid, MV and thiamine. Check on status of new PCP visit next week. F/U 1 week. Tobacco use disorder As above. Reviewed Rx options. Manuel would like to try varenicline. Reviewed and Rxed. Review on f/u. Diagnoses and all orders for this visit: Alcohol use disorder, severe, dependence (CMS/HCC) Tobacco use disorder This information has been disclosed to you from records protected by federal confidentiality rules(42 CFR Part 2). The federal rules prohibit you from making any further disclosure of information in this record that identifies a patient as having or having had a substance use disorder either directly, by reference to publicly available information, or through verification of such identificationby another person unless further disclosure is expressly permitted by the written consent of the individual whose information is being disclosed or as otherwise permitted by (see 2.3.1). The federal rules restrict any use of the information to investigate or prosecute with regard to a crime any patient with a substance use disorder, except as provided at 2.12??(5) and 2.65. documented in this encounter Plan of Treatment Scheduled Orders Name Type Priority Associated Diagnoses Orde r Schedule Hepatitis B Surface Antibody, Qualitative Lab Routine Alcohol use disorder, severe, dependence (CMS/HCC) Expected: 11/04/2024 (Approximate), Expires: 11/04/2025 Glucose, Fasting Lab Routine Alcohol use disorder, severe, dependence (CMS/HCC) Expected: 11/04/2024 (Approximate), Expires: 11/04/2025 Lipid Panel with Reflex to Direct LDL Lab Routine Alcohol use disorder, severe, dependence (CMS/HCC) Expected: 11/04/2024 (Approximate), Expires: 11/04/2025 Vitamin B12/Folate, Serum Panel Lab Routine Alcohol use disorder, severe, dependence (CMS/HCC) Expected: 11/05/2024, Expires: 11/05/2025 documented as of this encounter Procedures Procedure Name Priority Date/Time Associated Diagnosis Comments POCT MARY ELLEN-14 URINE DRUG SCREEN Routine 11/04/2024 9:38 AM EST Alcohol use disorder, severe, dependence (CMS/HCC) POCT ALCOHOL BREATH TEST Routine 11/04/2024 9:38 AM EST Alcohol use disorder, severe, dependence (CMS/HCC) documented in this encounter Results * POCT alcohol breath test manually resulted (11/04/2024 9:38 AM EST) Breath Alcohol 0.00 Breath 11/04/2024 9:38 AM EST us Rafael Prieto MD POINT OF CARE TEST ENTER/EDIT ORDERABLES Final Result * POCT MARY ELLEN-14 Urine Drug Screen (11/04/2024 9:38 AM EST) THC Negative Cocaine Screen, Urine Negative Opiate Screen, Urine Negative Methamphetamine Screen Urine Negative Amphetamine Screen, Urine Negative Benzodiazepines Screen, Urine Negative Barbiturate Screen, Urine Negative Methadone Screen, Urine Negative Buprenophine Screen, Urine Negative TCA, Urine Negative MDMA Urine Negative ng/mL Oxycodone Screen, Urine Negative Phencyclidine (PCP), Urine Negative Propoxyphene, Urine Negative Urine Urine specimen obtained by clean catch procedure / Unknown 11/04/2024 9:38 AM EST us Rafael Prieto MD POINT OF CARE TEST ENTER/EDIT ORDERABLES Final Result documented in this encounter Visit Diagnoses Diagnosis Alcohol use disorder, severe, dependence (CMS/HCC)- Primary Tobacco use disorder documented in this encounter Additional Health Concerns Assessment Noted Time PHQ-9 Depression Total Score: 0 10/28/19 25 4:15 PM EST documented as of this encounter
--- OUTSIDE RECORDS SUMMARY | 2024-11-11 11:17 | XMS_ITS | Encounter Summary ---
Author Organization [employer] Address [address] [place] [address] Care Team Providers Care Energy Manager Name Role Phone Unavailable Primary Care Provider Unavailabl e Encounter Details Date Type Department Care Team (Latest Contact Info) Description 11/11/2024 Travel Social History Tobacco Use Types Packs/Day [...] as of this encounter Plan of Treatment Not on file documented as of this encounter Visit Diagnoses Not on filedocumented in this encounter Additional Health Concerns Assessment Noted Time PHQ-9 Depression Total Score: 0 10/28/19 4:15 PM EST documented as of this encounter
--- OUTSIDE RECORDS SUMMARY | 2024-11-11 11:17 | XMS_ITS | Clinical Summary ---
Author Organization [employer] Address [address] [facility] [address] [place] [address] Care Team Providers Care Advertising Job Titles Name Role Phone Unavailable Primary Care Provider Unavailabl e Allergies No known active allergies Medications * This document contains information received from the source organization and may not represent a complete record from that organization. varenicline (Chantix) 0.5 MG tabletIndicati ons:Tobacco use disorder One tab daily x 3 days, then 1 tab PO BID for 4 days. Take with full glass of water. 11 tablet 5 Active varenicline (Chantix) 1 MG tabletIndicati ons:Tobacco use disorder Take 1 tablet (1 mg) by mouth 2 times daily. Take with full glass of water. 156 tablet 5 025 Active folic acid (Folvite) 1 MG tabletIndicati ons:Alcohol use disorder, severe, dependence (CMS/HCC) Take 1 tablet (1 mg) by mouth Once per day. 90 tablet 2 5 025 Active thiamine (Vitamin B-1) 100 MG tabletIndicati ons:Alcohol use disorder, severe, dependence (CMS/HCC) Take 1 tablet (100 mg) by mouth Once per day. 90 tablet 2 5 025 Active Multiple Vitamin (multivitamin) tabletIndicati ons:Alcohol use disorder, severe, dependence (CMS/HCC) Take 1 tablet by mouth Once per day. 90 tablet 2 5 025 Active naltrexone (Depade) 50 MG tabletIndicati ons:Alcohol use disorder, severe, dependence (CMS/HCC) May take with food. 30 tablet 5 5 Active naltrexone (Depade) 50 MG tabletIndicati ons:Alcohol use disorder, severe, dependence (CMS/HCC) Take 1/2 tablet PO once daily x 2 days, then 1 pill PO once daily. May take with food. 15 tablet 025 Discontinued(Re order (will not trigger notification to Pharmacy)) Active Problems Problem Noted Date Diagnosed Date Alcohol use disorder 10/28/2024 History of substance use 10/28/2024 Encounters * This document contains information received from the source organization and may not represent a complete record from that organization. Date Type Department Care Team Description 11/11/2024 9:30 AM EDT Office Visit [address] [id number] Rafael Prieto MD Alcohol use disorder, severe, dependence (CMS/HCC) (Primary Dx); Tobacco use disorder 11/11/2024 Travel 11/04/2024 10:00 AM EST Office Visit [address] [phone] Rafael Prieto MD Alcohol use disorder, severe, dependence (CMS/HCC) (Primary Dx); Tobacco use disorder 11/04/2024 Travel 10/29/[address] [address] Rafael Prieto MD 10/28/2024 11:00 AM EST Office Visit [address] [phone] Rafael Prieto MD Alcohol abuse, uncomplicated (Primary Dx); Alcohol use disorder, severe, dependence (CMS/HCC); Tobacco use disorder 10/28/2024 Travel 10/21/2024 Patient Outreach [address] [address] Alejandro Jaime Recovery Supports from Last 3 [...] Orientation Straight 10/28/2024 10 :18 AM EST Last Filed Vital Signs Vital Sign Reading Time Taken Comments Blood Pressure 144/87 11/04/2024 9:37 AM EST Pulse 95 11/04/2024 9:37 AM EST Temperature 37.2 ??C (98.9 ??F) 11/04/2024 9:37 AM ES T Respiratory Rate 20 11/04/2024 9:37 AM EST Oxygen Saturation - - Inhaled Oxygen Concentration - - Weight - - Height - - Body Mass Index - - Plan of Treatment Health Maintenance Due Date Last Done Comments CT Colonography 1973 Colonoscopy 1973 Colorectal Cancer Screening 1973 FIT DNA/Cologuard 1973 FIT 1973 FOBT 1973 Lipid Panel 1973 SDOH Screening 1973 Sigmoidoscopy 1973 Alcohol/Substance Use Screening 1985 Tobacco Screening 1985 Family Planning (PISQ) 1988 Hepatitis B Vaccines (1 of 3 - 19+ 3-dose series) 1992 Pneumococcal Vaccine: 50+ Years (1 of 2 - PCV) 1992 DTaP/Tdap/Td Vaccines (2 - T d or Tdap) 06/13/2022 06/13/2012 Zoster Vaccines (1 of 2) 2023 COVID-19 Vaccine ( - 2023-2 5 season) 2024 Influenza Vaccine (#1) 2024 Depression Screening 10/28/2025 10/28/2024, 10/28/2024 RSV Patients and Patients Aged 60 years or older (1 - 1-dose 75+ series) 2048 HIV Screening Completed 10/28/2024 Hepatitis C Screening Completed 10/28/2024 HIB Vaccines Aged Out No longer eligi [...] POCT MARY ELLEN-14 URINE DRUG SCREEN Routine 11/11/2024 9:21 AM EDT Alcohol use disorder, severe, dependence (CMS/HCC) POCT ALCOHOL BREATH TEST Routine 11/04/2024 9:38 AM EST Alcohol use disorder, severe, dependence (CMS/HCC) POCT MARY ELLEN-14 URINE DRUG SCREEN Routine 11/04/2024 9:38 AM EST Alcohol use disorder, severe, dependence (CMS/HCC) PROTHROMBIN TIME-INR Routine 10/28/2024 11:29 AM EST Alcohol use disorder, severe, dependence (CMS/HCC) HEPATITIS B SURFACE ANTIGEN, EIA Routine 10/28/2024 11:29 AM EST Alcohol abuse, uncomplicated RPR (MONITOR) W/REFL TITER Routine 10/28/2024 11:29 AM EST Alcohol abuse, uncomplicated HIV 1/2 ANTIGEN/ANTIBODY, FOURTH GENERATION W/RFL Routine 10/28/2024 11:29 AM EST Alcohol abuse, uncomplicated T-SPOT(R).TB Routine 10/28/2024 11:29 AM EST Alcohol abuse, uncomplicated CBC WITH AUTO DIFFERENTIAL Routine 10/28/2024 11:29 AM EST Alcohol abuse, uncomplicated UREA NITROGEN (BUN) Routine 10/28/2024 1 1:29 AM EST Alcohol abuse, uncomplicated CREATININE, SERUM Routine 10/28/2024 11: 29 AM EST Alcohol abuse, uncomplicated HEPATITIS A ANTIBODY, TOTAL Routine 10/28/2024 11:29 AM EST Alcohol abuse, uncomplicated HEPATITIS B CORE AB TOTAL Routine 10/28/2024 11:29 AM EST Alcohol abuse, uncomplicated HEPATITIS C AB W/REFL TO HCV RNA, QN, PCR Routine 10/28/2024 11:29 AM EST Alcohol abuse, uncomplicated HEPATIC FUNCTION PANEL Routine 10/28/2024 11:29 AM EST Alcohol abuse, uncomplicated POCT MARY ELLEN-14 URINE DRUG SCREEN Routine 10/28/2024 10:59 AM EST Alcohol abuse, uncomplicated from Last 3 Months Results * POCT MARY ELLEN-14 Urine Drug Screen (11/11/2024 9:21 AM EDT) Only the most recent of3 resultswithin the time period is included. THC Negative Cocaine Screen, Urine Negative Opiate [...] obtained by clean catch procedure / Unknown 11/11/2024 9:21 AM EDT us Rafael Prieto MD POINT OF CARE TEST ENTER/EDIT ORDERABLES Final Result * POCT alcohol breath test manually resulted (11/04/2024 9:38 AM EST) Breath Alcohol 0.00 Breath 11/04/2024 9:38 AM EST us Rafael Prieto MD POINT OF CARE TEST ENTER/EDIT ORDERABLES Final Result * T-SPOT??.TB (10/28/2024 11:29 AM EST) T Spot TB Negative Negative [facility] Comment:A negative test resu lt does not exclude the possibilityof exposure to or infection with Mycobacteriumtuberculosis (M. tuberculosis). Patients with recentexposure to TB infected individuals exhibiting anegative T-SPOT.TB result should be considered forretesting within 6 weeks or if other relevant clinicalsymptoms indicate. Results from T-SPOT.TB testing mustbe used in conjunction with each individual'sepidemiological history, current medical status,and results of other diagnostic evaluations.The T-SPOT.TB test is qualitative and results arereported as positive, borderline, or negative, giventhat the test controls perform as expected. In linewith the Centers for Disease Control and Prevention's2010 recommendation to report quantitative measurementsalongside the qualitative result, the laboratoryprovides spot counts for informational purposes only.The T-SPOT.TB test should not be interpreted as aquantitative test. TS PANEL A 0 [facility] TS PANEL B 0 [facility] Negative Control Passed [facility] Positive Control Passed [facility] Comment:For additional infor smooth, please refer tohttp://education.[employer]/faq/MAV662(This link is being provided for informational/educational purposes only.)THIS TEST WAS PERFORMED AT:[id number] [place] [id number] NEIL MD,PHD 10/28/2024 11:2 9 AM EST 10/28/2024 1:08 PM EST us Rafael Prieto MD LAB BLOOD ORDERABLES Final Res ult [facility] [address], [place] [phone] * Creatinine, Serum (10/28/2024 11:29 AM EST) Creatinine, Serum 0.82 0.5 - 1.4 mg/dL [facility] Estimated Glomerular Filt Rate >60 [facility] Comment:Chronic Kidney Disea se: Estimated GFR < 60 mL/min/[id number] Kidney Disease: Estimated GFR < 15 mL/min/1.73m2 Blood 10/28/2024 11:2 9 AM EST 10/28/2024 1:06 PM EST us Rafael Prieto MD LAB BLOOD ORDERABLES Final Res ult [facility] [address] [place] [phone] * (ABNORMAL) CBC auto differential (10/28/2024 11:29 AM EST) White Blood Count 8.1 4.8 - 10.8 X10*3/uL [facility] Red Blood Count 4.65 4.60 - 5.80 X10*6/uL [facility] Hemoglobin 15.8 14.0 - 18.0 g/dl [facility] Hematocrit 45.9 42.0 - 52.0 % [facility] Mean Corpuscular Volume 98.7(H) 80.0 - 98.0 fL [facility] Mean Corpuscular Hemoglobin 34.0(H) 27.0 - 33.0 pg [facility] Mean Corpuscular HGB Conc 34.4 31.0 - 36.0 g/dl [facility] Red Cell Distribution Width 12.2 11.0 - 16.0 % [facility] Platelet Count 313 160 - 400 X10*3/uL [facility] Mean Platelet Volume 10.2 9.4 - 12.4 fL [facility] Neutrophils Percent Auto 60.8 45 - 73 % [facility] Imm Gran Pct Auto 0.5(H) 0.0 - 0.4 % [facility] Lymphocytes Percent Auto 27.3 20 - 40 % [facility] Monocytes Percent Auto 9.1 2 - 11 % [facility] Eosinophils Percent Auto 1.9 0 - 4 % [facility] Basophils Percent Auto 0.4 0 - 2 % [facility] NRBC Pct Auto 0.0 0.0 - 0.2 /100WBC [facility] Neutrophils Absolute Auto 4.9 2.0 - 8.3 x10*3/uL [facility] Imm Gran Abs Auto 0.04(H) 0.00 - 0.03 X10*3/uL [facility] Lymphocytes Absolute Auto 2.2 1.2 - 4.9 X10*3/uL [facility] Monocytes Absolute Auto 0.7 0.1 - 1.2 X10*3/uL [facility] Eosinophils Absolute Auto 0.2 0.0 - 0.4 X10*3/uL [facility] Basophils Absolute Auto 0.0 0.0 - 0.2 X10*3/uL [facility] NRBC Abs Auto 0.000 0.0 - 0.012 X10*3/uL [facility] Blood Venous blood specimen / Unknown 10/28/2024 11:29 AM EST 10/28/2024 1:08 PM EST Rafael Prieto MD LAB BLOOD ORDERABLES Final Res ult Performing Organization Address City/[facility]/ZIP Co de Phone Number [facility] [address] [place] [phone] * Hepatitis C Antibody with Reflex to HCV, RNA, Quantitative, Real-Time PCR (10/28/2024 11:29 AM EST) Hepatitis C Antibody Nonreactive Nonreactive [facility] Comment:Antibodies to HCV no t detected; does not exclude early acuteHCV infection. Blood Venous blood specimen / Unknown 10/28/2024 11:29 AM EST 10/28/2024 1:06 PM EST Rafael Prieto MD LAB BLOOD ORDERABLES Final Res ult Performing Organization Address City/[facility]/ZIP Co de Phone Number [facility] [address] [place] [phone] * Hepatitis A Antibody, Total (10/28/2024 11:29 AM EST) Pathologist [facility] Hepatitis A Antibody IgG Nonreactive Nonreactive [facility] Blood Venous blood specimen / Unknown 10/28/2024 11:29 AM EST 10/28/2024 1:06 PM EST Rafael Prieto MD LAB BLOOD ORDERABLES Final Res ult Performing Organization Address [facility] Co de Phone Number [facility] [address] [place] [phone] * Hepatitis B surface antigen, EIA (10/28/2024 11:29 AM EST) Pathologist [facility] Hepatitis B Surface Ag Negative Negative [facility] Blood Venous blood specimen / Unknown 10/28/2024 11:29 AM EST 10/28/2024 1:06 PM EST Rafael Prieto MD LAB BLOOD ORDERABLES Final Res ult Performing Organization Address [facility] Co de Phone Number [facility] [address] [place] [phone] * Hepatitis B Core Antibody, Total (10/28/2024 11:29 AM EST) Pathologist [facility] Hepatitis B Core Antibody Nonreactive Nonreactive [facility] Blood Venous blood specimen / Unknown 10/28/2024 11:29 AM EST 10/28/2024 1:06 PM EST Rafael Prieto MD LAB BLOOD ORDERABLES Final Res ult Performing Organization Address [facility] de Phone Number [facility] [address] [place] [phone] * RPR (Monitor) with Reflex to??Titer (10/28/2024 11:29 AM EST) Pathologist [facility] RPR (Monitor) w/Refl Titer NON-REACTI VE NON-REACT AILYN [facility] Comment:THIS TEST WAS PERFOR MED AT:[employer] [place] [id number] RANDALL MD Rapid Plasma Reagin Ab Titer TNP [facility] Blood Venous blood specimen / Unknown 10/28/2024 11:29 AM EST 10/28/2024 1:08 PM EST Rafael Prieto MD LAB BLOOD ORDERABLES Final Res ult Performing Organization Address City/[facility]/ZIP Co de Phone Number [facility] [address] [place] [phone] * HIV-1/2 Antigen and Antibodies, Fourth Generation, with Reflexes (10/28/2024 11:29 AM EST) Pathologist [facility] HIV AB/AG Nonreactive Nonreactive [facility] Comment:HIV-1 p24 Ag and/or HIV-1/HIV-2 Ab not detected.A test result that is nonreactive does not exclude thepossibility of exposure to or infection with HIV-1 and/orHIV-2. Nonreactive results in this assay for individualswith prior exposure to HIV-1 and/or HIV-2 may be due toantigen and antibody levels that are below the limit ofdetection of this assay.The Slide HIV Ag/Ab Combo assay result andsupplemental assay results should be interpreted inconjunction with the patient's clinical presentation,history and other laboratory results. If the results areinconsistent with clinical evidence, additional testing issuggested to confirm the result. Blood Venous blood specimen / Unknown 10/28/2024 11:29 AM EST 10/28/2024 1:06 PM EST Rafael Prieto MD LAB BLOOD ORDERABLES Final Res ult Performing Organization Address City/[facility]/ZIP Co de Phone Number [facility] [address] [place] [phone] * (ABNORMAL) Prothrombin Time-INR (10/28/2024 11:29 AM EST) Prothrombin Time 9.6(L) 10.9 - 12.4 SEC [facility] INTERNATIONAL NORM RATIO 0.8(L) 0.9 - 1.1 [facility] Comment:INTERNATIONAL NORMAL IZED RATIO (INR) [...] ORDERABLES Final Res ult Performing Organization Address [facility] Co de Phone Number [facility] [address] [place] [phone] * (ABNORMAL) BUN (Blood Urea Nitrogen) (10/28/2024 11:29 AM EST) Urea Nitrogen (BUN) 20(H) 9 - 16 mg/dL [facility] Blood Venous blood specimen / Unknown 10/28/2024 11:29 AM EST 10/28/2024 1:06 PM EST Rafael Prieto MD LAB BLOOD ORDERABLES Final Res ult Performing Organization Address [facility] Co de Phone Number [facility] [address] [place] [phone] * (ABNORMAL) Hepatic Function Panel (10/28/2024 11:29 AM EST) Bilirubin, Total 0.2 0.0 - 1.0 mg/dL [facility] Bilirubin, Direct <0.2 0.0 - 0.5 mg/dL [facility] Aspartate Amino Transferase 39(H) 5 - 37 U/L [facility] Alanine Aminotransferase 59(H) 0 - 40 U/L [facility] Total Protein 8.0 6.5 - 8.0 g/dL [facility] Albumin Level 4.4 3.5 - 5.0 g/dL [facility] Alkaline Phosphatase 113 39 - 117 U/L [facility] Blood Venous blood specimen / Unknown 10/28/2024 11:29 AM EST 10/28/2024 1:06 PM EST us Rafael Prieto MD LAB BLOOD ORDERABLES Final Res ult [facility] [address] [place] [phone] from Last 3 Months Insurance [facility] [id number]
--- OUTSIDE RECORDS SUMMARY | 2024-11-11 11:17 | XMS_ITS | Encounter Summary ---
Author Organization [employer] Address [address] [facility] [address] [place] [address] Care Team Providers Care Service Transformer Repair Supervisor Name Role Phone Unavailable Primary Care Provider Unavailabl e Encounter Details Date Type Department Care Team (Latest Contact Info) Description 11/04/2024 Travel Social History Tobacco Use Types Packs/Day [...]
--- OUTSIDE RECORDS SUMMARY | 2024-11-11 11:17 | XMS_ITS | Clinical Summary ---
Author Organization [facility] ity Address [address] [place] [address] Care Team Providers Care Consignee Name Role Phone Unavailable Primary Care Provider [...]
--- OUTSIDE RECORDS SUMMARY | 2024-11-11 11:17 | XMS_ITS | Encounter Summary ---
Author Organization [employer] Address [address] [facility] 7t [place] [address] Care Team Providers Care Critical Care Nurse Name Role Phone Unavailable Primary Care Provider Unavailabl e Reason for Visit * Reason Comments AUD NEW PT Encounter Details Date Type Department Care Team (Latest Contact Info) Description 10/28/2024 11:00 AM EST Office Visit [facility] [address] [place], [place] [phone] Rafael Prieto MD [address] [place] [address] Alcohol abuse, uncomplicated (Primary Dx); Alcohol use [...] as of this encounter Progress Notes * Rafael Prieto MD - 10/28/2024 11:00 AM EST Patient ID: Manuel Sarmiento is a 49 y.o. male who presents for evaluation and possible treatment foralcohol use. 10/28/2408/2021 [facility] [place] : History of Present Illness HPI narrative: 46-year-old male no known medical history presents to the emergency department via EMS for heroin overdose. EMS reports that patient was in a vehicle, he had to get taken out of a vehicle he was unresponsive, given 2 mg of nasal Narcan initially by family, and then 4 mg of nasal Narcan by EMS, EMS had to bag the patient, they report cyanosis. Patient tells me that he used 1 bag of heroin he snorted it, this was his 1st time. He tells me he wanted to try it, and this is why he used it. He tells me he had no intent of hurting himself. He states he also had few shots this morning.When I asked patient if there is anything else that is bothering him he starts laughing and tells me no nothing is bothering me. He denies chest pain, shortness of breath, fevers, chills, chest pain,headache, dizziness, weakness. Relieving factors: none Exacerbating factors: none Associated symptoms: denies other symptoms Treatments prior to arrival: none 01/2024 CBC H/H 14.2/39.9, MCV 100.5 platelets 216 k BUN/Cr 25/0.81, LFTs nl Today 10/28/24 49 y.o male who is here today for evaluation and possible Rx for alcohol use disorder Utox neg DSM 5 AUD 03/13 Started drinking heavily ~ 4 years ago, [...] He's also interested in connecting with a assistant men's lacrosse coach. Needs a PCP. Was on Suboxone till [...] at her place until he receives Rx. Objective Physical Exam Constitutional: Appearance: Normal appearance. HENT: Mouth/Throat: Comments: Poor dentition. Eyes: Conjunctiva/sclera: Conjunctivae normal. Pupils: Pupils are equal, round, and reactive to light. Cardiovascular: Rate and Rhythm: Normal rate and regular rhythm. Pulmonary: Effort: Pulmonary effort is normal. Comments: Scattered wheeze. Abdominal: General: Abdomen is flat. Palpations: Abdomen is soft. Tenderness: There is no abdominal tenderness. Musculoskeletal: Right lower leg: No edema. Left lower leg: No edema. Neurological: Mental Status: He is alert and oriented to person, place, and time. Psychiatric: Mood and Affect: Mood normal. Behavior: Behavior normal. Thought Content: Thought content normal. Assessment/Plan Alcohol use disorder, severe, dependence (CMS/HCC) 49 y.o male who is here today for evaluation and possible Rx for alcohol use disorder Utox neg DSM 5 AUD 03/13 Started drinking heavily ~ 4 years ago, [...] He's also interested in connecting with a assistant men's lacrosse coach. Needs a PCP. Was on Suboxone till [...] and actions to take. Met with Wandy Ramos, team therapist and will be referred to Morgan Hodges, psychiatric nurse practitioner. He went to [facility] to connect with a assistant men's lacrosse coach. Given flyer of support groups available. Labs today. Rx folic acid and thiamine on f/u. F/U 1 week. Diagnoses and all orders for this visit: Alcohol abuse, uncomplicated - POCT MARY ELLEN-14 Urine Drug Screen - Hepatic Function Panel; Future - Hepatitis C Antibody with Reflex to HCV, RNA, Quantitative, Real-Time PCR; Future - Hepatitis B Core Antibody, Total; Future - Hepatitis A Antibody, Total; Future - Creatinine, Serum; Future - BUN (Blood Urea Nitrogen); Future - CBC auto differential; Future - T-SPOT??.TB; Future - HIV-1/2 Antigen and Antibodies, Fourth Generation, with Reflexes; Future - RPR (Monitor) with Reflex to Titer; Future - Hepatitis B surface antigen, EIA; Future - Hepatitis B Core Antibody, Total; Future Alcohol use disorder, severe, dependence (CMS/HCC) - naltrexone (Depade) 50 MG tablet; Take 1/2 tablet PO once daily x 2 days, then 1 pill PO once daily. May take with food. - Prothrombin Time-INR; Future Tobacco use disorder This information has been [...] Associated Diagnoses Orde r Schedule Hepatitis B Core Antibody, Total Lab Routine Alcohol abuse, uncomplicated Expected: 10/28/2024 (Approximate), Expires: 10/28/2025 Hepatitis B Surface Antibody, Qualitative Lab Routine Alcohol use disorder, severe, dependence (CMS/HCC) Expected: 10/29/2024 (Approximate), Expires: 10/29/2025 documented as of this encounter Procedures Procedure Name Priority Date/Time Associated Diagnosis Comments T-SPOT(R).TB Routine 10/28/2024 11:29 AM EST Alcohol abuse, uncomplicated CREATININE, SERUM Routine 10/28/2024 11: 29 AM EST Alcohol abuse, uncomplicated CBC WITH AUTO DIFFERENTIAL Routine 10/28/2024 11:29 AM EST Alcohol abuse, uncomplicated HEPATITIS C AB W/REFL TO HCV RNA, QN, PCR Routine 10/28/2024 11:29 AM EST Alcohol abuse, uncomplicated HEPATITIS A ANTIBODY, TOTAL Routine 10/28/2024 11:29 AM EST Alcohol abuse, uncomplicated HEPATITIS B SURFACE ANTIGEN, EIA Routine 10/28/2024 [...] Prothrombin Time 9.6(L) 10.9 - 12.4 SEC [facility] INTERNATIONAL NORM RATIO 0.8(L) 0.9 - 1.1 [facility] Comment:INTERNATIONAL NORMAL IZED RATIO (INR) [...] ORDERABLES Final Res ult Performing Organization Address [facility]/ZIP Co de Phone Number [facility] [address] [place] [phone] * Hepatitis B surface antigen, EIA (10/28/2024 11:29 AM EST) Hepatitis B Surface Ag Negative Negative [facility] Blood Venous blood specimen / Unknown 10/28/2024 11:29 AM EST 10/28/2024 1:06 PM EST Rafael Prieto MD LAB BLOOD ORDERABLES Final Res ult Performing Organization Address [facility] Phone Number [facility] [address] [place] [phone] * RPR (Monitor) with Reflex to??Titer (10/28/2024 11:29 AM EST) Pathologist [facility] RPR (Monitor) w/Refl Titer NON-REACTI VE NON-REACT AILYN [facility] Comment:THIS TEST WAS PERFOR MED AT:[employer] [address] [id number] RANDALL MD Rapid Plasma Reagin Ab Titer TNP [facility] Blood Venous blood specimen / Unknown 10/28/2024 11:29 AM EST 10/28/2024 1:08 PM EST Rafael Prieto MD LAB BLOOD ORDERABLES Final Res ult Performing Organization Address [facility] Co de Phone Number [facility] [address] [place] [phone] * HIV-1/2 Antigen and Antibodies, Fourth Generation, with Reflexes (10/28/2024 11:29 AM EST) HIV AB/AG Nonreactive Nonreactive [facility] Comment:HIV-1 p24 Ag and/or HIV-1/HIV-2 Ab not detected.A test result that is nonreactive does not exclude thepossibility of exposure to or infection with HIV-1 and/orHIV-2. Nonreactive results in this assay for individualswith prior exposure to HIV-1 and/or HIV-2 may be due toantigen and antibody levels that are below the limit ofdetection of this assay.The [employer] HIV Ag/Ab Combo assay result andsupplemental assay results should be interpreted inconjunction with the patient's clinical presentation,history and other laboratory results. If the results areinconsistent with clinical evidence, additional testing issuggested to confirm the result. Blood Venous blood specimen / Unknown 10/28/2024 11:29 AM EST 10/28/2024 1:06 PM EST us Rafael Prieto MD LAB BLOOD ORDERABLES Final Res ult [facility] [address] [place] [phone] * T-SPOT??.TB (10/28/2024 11:29 AM EST) [facility] T Spot TB Negative Negative [facility] Comment:A negative test resu lt [...] as aquantitative test. TS PANEL A 0 [facility] TS PANEL B 0 [facility] Negative Control Passed [facility] Positive Control Passed [facility] Comment:For additional infor matmartha, please refer tohttp://education.octoScope/faq/JFA926(This link is being provided for informational/educational purposes only.)THIS TEST WAS PERFORMED AT:[employer] [id number] [place] [id number] NEIL MD,PHD 10/28/2024 11:2 9 AM EST 10/28/2024 1:08 PM EST us Rafael Prieto MD LAB BLOOD ORDERABLES Final Res ult [facility] [address] [place] [phone] * (ABNORMAL) CBC auto differential (10/28/2024 11:29 AM EST) White Blood Count 8.1 4.8 - 10.8 X10*3/uL [facility] Red Blood Count 4.65 4.60 - 5.80 X10*6/uL [facility] Hemoglobin 15.8 14.0 - 18.0 g/dl [facility] Hematocrit 45.9 42.0 - 52.0 % [facility] Mean Corpuscular Volume 98.7(H) 80.0 - 98.0 fL [facility] Mean Corpuscular Hemoglobin 34.0(H) 27.0 - 33.0 pg [facility] Mean Corpuscular HGB Conc 34.4 31.0 - 36.0 g/dl [facility] Red Cell Distribution Width 12.2 11.0 - 16.0 % [facility] Platelet Count 313 160 - 400 X10*3/uL [facility] Mean Platelet Volume 10.2 9.4 - 12.4 fL [facility] Neutrophils Percent Auto 60.8 45 - 73 % [facility] Imm Gran Pct Auto 0.5(H) 0.0 - 0.4 % [facility] Lymphocytes Percent Auto 27.3 20 - 40 % [facility] Monocytes Percent Auto 9.1 2 - 11 % [facility] Eosinophils Percent Auto 1.9 0 - 4 % [facility] Basophils Percent Auto 0.4 0 - 2 % [facility] NRBC Pct Auto 0.0 0.0 - 0.2 /100WBC [facility] Neutrophils Absolute Auto 4.9 2.0 - 8.3 x10*3/uL [facility] Imm Gran Abs Auto 0.04(H) 0.00 - 0.03 X10*3/uL [facility] Lymphocytes Absolute Auto 2.2 1.2 - 4.9 X10*3/uL [facility] Monocytes Absolute Auto 0.7 0.1 - 1.2 X10*3/uL [facility] Eosinophils Absolute Auto 0.2 0.0 - 0.4 X10*3/uL [facility] Basophils Absolute Auto 0.0 0.0 - 0.2 X10*3/uL [facility] NRBC Abs Auto 0.000 0.0 - 0.012 X10*3/uL [facility] Blood Venous blood specimen / Unknown 10/28/2024 11:29 AM EST 10/28/2024 1:08 PM EST us Rafael Prieto MD LAB BLOOD ORDERABLES Final Res ult [facility] [address] [place] [phone] * (ABNORMAL) BUN (Blood Urea Nitrogen) (10/28/2024 11:29 AM EST) Urea Nitrogen (BUN) 20(H) 9 - 16 mg/dL [facility] Blood Venous blood specimen / Unknown 10/28/2024 11:29 AM EST 10/28/2024 1:06 PM EST us Rafael Prieto MD LAB BLOOD ORDERABLES Final Res ult Performing Organization Address [facility] Co de Phone Number [facility] [address] [place] [phone] * Creatinine, Serum (10/28/2024 11:29 AM EST) Creatinine, Serum 0.82 0.5 - 1.4 mg/dL [facility] Estimated Glomerular Filt Rate >60 [facility] Comment:Chronic Kidney Disea se: Estimated GFR < 60 mL/min/1.83t5Fqtrew Kidney Disease: Estimated GFR < 15 mL/min/1.73m2 Blood 10/28/2024 11:2 9 AM EST 10/28/2024 1:06 PM EST us Rafael Prieto MD LAB BLOOD ORDERABLES Final Res ult Performing Organization Address [facility] de Phone Number [facility] [address] [place] [phone] * Hepatitis A Antibody, Total (10/28/2024 11:29 AM EST) Hepatitis A Antibody IgG Nonreactive Nonreactive [facility] Blood Venous blood specimen / Unknown 10/28/2024 11:29 AM EST 10/28/2024 1:06 PM EST Rafael Prieto MD LAB BLOOD ORDERABLES Final Res ult Performing Organization Address [facility] Co de Phone Number [facility] [address] [place] [phone] * Hepatitis B Core Antibody, Total (10/28/2024 11:29 AM EST) Hepatitis B Core Antibody Nonreactive Nonreactive [facility] Blood Venous blood specimen / Unknown 10/28/2024 11:29 AM EST 10/28/2024 1:06 PM EST us Rafael Prieto MD LAB BLOOD ORDERABLES Final Res ult Performing Organization Address [facility] Co de Phone Number [facility] [address] [place] [phone] * Hepatitis C Antibody with Reflex to HCV, RNA, Quantitative, Real-Time PCR (10/28/2024 11:29 AM EST) Hepatitis C Antibody Nonreactive Nonreactive [facility] Comment:Antibodies to HCV no t detected; does not exclude early acuteHCV infection. Blood Venous blood specimen / Unknown 10/28/2024 11:29 AM EST 10/28/2024 1:06 PM EST Rafael Prieto MD LAB BLOOD ORDERABLES Final Res ult Performing Organization Address [facility] Co de Phone Number [facility] [address] [place] [phone] * (ABNORMAL) Hepatic Function Panel (10/28/2024 11:29 AM EST) Bilirubin, Total 0.2 0.0 - 1.0 mg/dL [facility] Bilirubin, Direct <0.2 0.0 - 0.5 mg/dL [facility] Aspartate Amino Transferase 39(H) 5 - 37 U/L [facility] Alanine Aminotransferase 59(H) 0 - 40 U/L [facility] Total Protein 8.0 6.5 - 8.0 g/dL [facility] Albumin Level 4.4 3.5 - 5.0 g/dL [facility] Alkaline Phosphatase 113 39 - 117 U/L [facility] Blood Venous blood specimen / Unknown 10/28/2024 11:29 AM EST 10/28/2024 1:06 PM EST Rafael Prieto MD LAB BLOOD ORDERABLES Final Res ult Performing Organization Address [facility] Co de Phone Number [facility] [address] [place] [phone] * POCT MARY ELLEN-14 Urine Drug [...]
--- OUTSIDE RECORDS SUMMARY | 2024-11-11 11:17 | XMS_ITS | Encounter Summary ---
Author Organization [employer] Address [address] [facility] [address] [place] [address] Care Team Providers Care Process Description Writer Name Role Phone Unavailable Primary Care Provider Unavailabl e Encounter Details Date Type Department Care Team (Late st Contact Info) Description 10/29/2024 Telephone [facility] [address] [place] [address] Rafael Prieto MD [address] [place] [address] Social History Tobacco Use Types Packs/Day Years [...] AM EST documented as of this encounter Miscellaneous Notes * Telephone Encounter - Rafael Prieto MD - 10/29/2024 12:54 PM EST To add lab test. I spoke [place] [facility]. They will add Hep B Surface AB. documented in this encounter Plan of Treatment Not on file documented as of this encounter Visit Diagnoses Diagnosis Alcohol use disorder, severe, dependence (CMS/HCC)- Primary documented in this encounter Additional Health Concerns Assessment Noted Time PHQ-9 Depression Total Score: 0 10/28/19 4:15 PM EST documented as of this encounter
--- OUTSIDE RECORDS SUMMARY | 2024-11-11 11:17 | XMS_ITS | Encounter Summary ---
Author Organization [employer] Address [address] [facility] [address] [place] [address] Care Team Providers Care Pega Developer Name Role Phone Unavailable Primary Care Provider Unavailabl e Reason for Visit * Reason Comments [facility] Encounter Details Date Type Department Care Team (Late st Contact Info) Description 10/21/2024 Patient Outreach [facility] MEDICINE [address] [place] [phone] Alejandro [facility] Social History Tobacco [...] with Manuel today. Setting: in person at [facility] Recovery Wellness Goals worked on: Social Stability [...]
--- OUTSIDE RECORDS SUMMARY | 2024-11-11 11:17 | XMS_ITS | Encounter Summary ---
Author Organization [employer] Address [address] [facility] [address] [place] [address] Care Team Providers Care Harnessmaker Apprentice Name Role Phone Unavailable Primary Care Provider [...]
--- OUTSIDE RECORDS SUMMARY | 2024-11-11 11:18 | XMS_ITS | Encounter Summary ---
Author Organization [employer] Address [address] [facility] [address] [place] [address] Care Team Providers Care Principal Investigator Name Role Phone Unavailable Primary Care Provider Unavailabl e Reason for Visit * Reason Comments AUD F/U Encounter Details Date Type Department Care Team (Late st Contact Info) Description 11/11/2024 9:30 AM EDT Office Visit [facility]ICINE [address] [place] [address] Rafael Prieto MD [address] [place] [address] Alcohol use disorder, severe, dependence (CMS/HCC) (Primary [...] on file documented as of this encounter Procedures Procedure Name Priority Date/Time Associated Diagnosis Comments POCT MARY ELLEN-14 URINE DRUG SCREEN Routine 11/11/2024 9:21 AM EDT Alcohol use disorder, severe, dependence (CMS/HCC) documented in this encounter Results * POCT MARY ELLEN-14 Urine Drug Screen (11/11/2024 9:21 AM EDT) THC Negative Cocaine Screen, Urine Negative Opiate [...]
[2024-11-11 12:19] LABS: HBS Num1 0.14 mIU/mL (0-7.99); HBc Num1 0.08 S/CO (0.00-0.79); Hepatitis B Core Antibody Nonreactive (Nonreactive); ~Hepatitis B Surface Antibody NONREACTIVE (Nonreactive)
[2024-11-11 12:23] LABS: Cholesterol 264 mg/dL (<200); Glucose Fasting 107 mg/dL (60-99); HDL Cholesterol 92 mg/dL (>40); LDL Cholesterol Calculated 152 mg/dL (<100); Triglycerides 101 mg/dL (<150)
[2024-11-11 12:37] LABS: Folate 12.9 ng/mL (> or = 4.0); Vitamin B12 340 pg/mL (200-900)
[2024-11-11 14:00] LABS: Reflex LDLD? No
== END 2024-11-11 09:53 | disposition home or self-care (01) ==
LOC: HO.HHCL 09:52
PROVIDERS: Visit Provider Emergency Medicine
DX: F10.20 Alcohol dependence, uncomplicated (principal)
CPT/HCPCS: 36415; 80061; 82607; 82746; 82947; 86704; 86706

== ENCOUNTER 2025-05-20 08:32 | Inpatient (IN) | payer MEDICAID, SELFPAY ==
[2025-05-20] VITALS (7 sets, daily range): BP systolic 129–154; BP diastolic 70–84; PULSE 78–102; RESP 15–18; TEMP 36.4–36.9; O2SAT 94–99; BMI 19.6; BMI 21.4
--- NOTE | 2025-05-20 08:45 | ED.GENADULT ---
HPI - General Adult General Chief complaint: General Medical Stated complaint: withdrawals, wants detox Time Seen by Provider: 05/20/25 08:45 Source: patient Mode of arrival: ambulatory Limitations: no limitations History of Present Illness ED Provider: Nargis Sheffield PA-C HPI narrative: Patient is a 49 year old assigned male at with a history of alcohol use presenting to the emergency department today in alcohol withdrawal. Patient states that he drinks over a pint of vodka a day and has for decades. Patient states that he has never gone longer than 24 hours without drinking so he is not sure how he withdrawals. Patient denies any other complaints at this time. Patient states that he has not drank for 24 hours and feels currently unwell. Related Data Previous Rx's ?Medication ?Instructions ?Recorded naloxone 4 mg/actuation nasal 4 mg intranasal Q2M PRN opioid 08/06/21 spray (Narcan) overdose #2 ea naproxen 500 mg tablet 500 mg PO BID 7 days #14 tabs 09/16/22 penicillin V potassium 500 mg 500 mg PO BID 10 days #20 tabs 09/16/22 tablet Allergies Allergy/AdvReac Type Severity Reaction Status Date / Time No Known Allergies Allergy Verified 05/20/25 08:37 Review of Systems Constitutional: Constitutional: Reports as per HPI Eyes: Eyes: Reports as per HPI ENT: Reports as per HPI Cardiovascular: Cardiovascular: Reports as per HPI Respiratory: Respiratory: Reports as per HPI Gastrointestinal: Gastrointestinal: Reports as per HPI Genitourinary: Genitourinary: Reports as per HPI Musculoskeletal: Musculoskeletal: Reports as per HPI Integumentary/Breasts: Skin/Breast: Reports as per HPI Neurologic: Reports as per HPI Psychiatric: Psychiatric: Reports as per HPI Endocrine: Endocrine: Reports as per HPI Hematologic/Lymphatic: Hematologic/Lymphatic: Reports as per HPI Allergic/Immunologic: Allergic/Immunologic: Reports as per HPI PMF Past Medical History Attestation statement: The following information was validated with the patient. Source: old records reviewed and nursing notes reviewed Medical History No known health problems Social History Social History Advance Directives: No Advance Directives Information Provided: No Physical Exam ED Vital Signs: Vital Signs - 24 hr 05/20/25 08:35 05/20/25 09:28 Temperature 97.8 F Pulse Rate 102 H 84 Respiratory Rate 18 15 Blood Pressure 135/83 154/77 H Pulse Oximetry 99 99 Oxygen Delivery Method Room Air Room Air BMI result Body Mass Index 19.6 Const General: cooperative, no acute distress, alert and awake Nutritional Appearance: well nourished Orientation/consciousness: patient oriented x3 HENMT Head: Yes normal to inspection and Yes atraumatic Ears: hearing grossly normal bilaterally and external ears normal General nose exam: Normal external nose present, no nasal discharge noted and no epistaxis Face and sinus: Yes normal facial exam, No abrasion and No laceration Mouth: Normal oral and palatal mucosa present, no drooling and no muffled voice Eyes General: appearance normal, both eyes and all related structures Periorbital: periorbital findings normal Eyelids: Yes eyelids normal Conjunctivae: conjunctivae normal Pupils: Equal, round and reactive pupils present EOM: EOMs intact bilaterally Neck Neck: Yes normal visual inspection and Yes full ROM Resp Effort & Inspection: normal respiratory effort and able to speak in complete sentences Cardio Rate: tachycardic Rhythm: regular rhythm Neuro General: patient oriented x3, moves all extremities and CN's II-XI intact bilaterally Cranial nerves: Yes Equal, round and reactive pupils present Cognition (Neuro): normal cognition Extrem General: Yes normal to inspection, Yes full ROM and Yes capillary refill normal Psych Appearance: grossly normal Mental Status: mental status grossly normal Affect: normal affect Attitude: cooperative Thought process: Normal thought process present Thought content: Normal thought content present Insight: Good insight present (Psych) Medications Administered Discontinued Medications Generic Name Dose Route Start Last Admin Trade Name Juanitoq PRN Reason Stop Dose Admin Sodium Chloride 1,000 mls @ 999 mls/hr 05/20/25 09:00 05/20/25 09:03 Ns IV 05/20/25 10:00 999 mls/hr .Q1H1M NICOLAS Administration Phenobarbital Sodium 260 mg 05/20/25 09:30 05/20/25 09:26 Phenobarbital Sodium 130 Mg/Ml Im Once IM 05/20/25 09:31 260 mg ONCE ONE Administration Medical Decision Making Medical Decision Making MDM Narrative: Patient is a 49 year old assigned male at with a history of alcohol use presenting to the emergency department today in alcohol withdrawal. Patient's physical exam was as noted in the physical exam portion of this note and consistent with alcohol withdrawal. Patient's blood work showed t bili of 1.2, ast 287, ALT 196, alk phos of 206, and lipase of 147. Patient's urine showed no acute process. Patient's EKG was unremarkable. I explained my physical exam findings as well as all test results to the patient. I answered all questions asked by the patient. Given patient's amount of alcohol consumption and duration of use with no attempts at detox - I began the patient on phenobarbital. I spoke with the hospitalist team who agreed to admission for continued phenobarbital administration and monitoring. Patient verbalized agreement and understanding with this treatment plan and admission. Differential Diagnosis Differential Diagnoses: The differential diagnosis associated with the presentation includes Alcohol withdrawal Alcohol abuse Admission/Observation Consideration of admission/observation: Escalation of care including admission/observation considered Patient admitted as noted in the MDM Rationale portion of this note. Consult Healthcare Provider Management of the patient was discussed with: Hospitalist (agreed to admission as noted in the MDM Rationale portion of this note. ) Lab Data [facility] Lab Attestation statement: I reviewed the patient's lab results. My interpretation of these results are in the MDM Rationale portion of this note. 05/20/25 08:49 05/20/25 08:49 Labs: Lab Results 05/20/25 Range/Units 08:49 WBC 7.5 (4.8-10.8) X10*3/uL RBC 4.23 L (4.60-5.80) X10*6/uL Hgb 15.4 (14.0-18.0) g/dl Hct 43.0 (42.0-52.0) % MCV 101.7 H (80.0-98.0) fL MCH 36.4 H (27.0-33.0) pg MCHC 35.8 (31.0-36.0) g/dl RDW 12.9 (11.0-16.0) % Plt Count 153 L D (160-400) X10*3/uL MPV 10.2 (9.4-12.4) fL Immature Gran % (Auto) 0.7 H (0.0-0.4) % Neut % (Auto) 69.5 (45-73) % Lymph % (Auto) 13.6 L (20-40) % [place] % (Auto) 15.6 H (2-11) % Eos % (Auto) 0.1 (0-4) % Baso % (Auto) 0.5 (0-2) % Lymph # (Auto) 1.0 L (1.2-4.9) X10*3/uL [place] # (Auto) 1.2 (0.1-1.2) X10*3/uL Eos # (Auto) 0.0 (0.0-0.4) X10*3/uL Baso # (Auto) 0.0 (0.0-0.2) X10*3/uL Abs Immat Gran (auto) 0.05 H (0.00-0.03) X10*3/uL Absolute Neuts (auto) 5.2 (2.0-8.3) x10*3/uL Absolute Nucleated RBC 0.000 (0.0-0.012) X10*3/uL Nucleated RBC % (auto) 0.0 (0.0-0.2) /100WBC Sodium 141 (135-145) mmol/L Potassium 4.1 (3.3-5.1) mmol/L Chloride 96 (96-108) mmol/L Carbon Dioxide 32 H (22-29) mmol/L Anion Gap 17 (12-20) BUN 17 H (9-16) mg/dL Creatinine 0.64 (0.5-1.4) mg/dL Estim Creat Clear Calc 109.5 Estimated GFR > 60 Random Glucose 124 H (60-115) mg/dL Calcium 10.4 H (8.4-10.2) mg/dL Total Bilirubin 1.2 H (0.0-1.0) mg/dL AST 287 H (5-37) U/L ALT 196 H (0-40) U/L Alkaline Phosphatase 206 H (39-117) U/L Total Protein 8.1 H (6.5-8.0) g/dL Albumin 4.8 (3.5-5.0) g/dL Lipase 147 H (8-78) U/L Urine Color Dark Yellow Urine Appearance Clear Urine pH 8.0 (5.0-9.0) Ur Specific [place] >= 1.030 H (1.005-1.025) Urine Protein 100 (2+) H (Neg-Trace) mg/dL Urine Glucose (UA) Negative (Negative) mg/dL Urine Ketones >=160 (Negative) mg/dL Urine Blood Negative (Negative) Urine Nitrite Positive H (Negative) Ur Leukocyte Esterase Small (1+) H (Negative) Urine RBC 0-2 (0-2) /HPF Urine WBC 0-5 (0-5) /HPF Ur Squamous Epith Cells 0-2 (0-2) /HPF Urine Bacteria Trace (None Seen) Hyaline Casts 0-2 (0-2) /LPF Ethyl Alcohol < 10 mg/dL Independent Interpretation I performed an independent interpretation of an: EKG Interpretation: I independently interpreted this EKG and am in agreement with the below findings: Vent. Rate: 81 BPM Atrial Rate: 81 BPM P-R Int: 114 ms QRS Dur: 102 ms QT Int: 396 ms P-R-T Axes: 86 70 47 degrees QTcB Int: 460 ms Sinus rhythm with Premature supraventricular complexes Possible Left atrial enlargement No previous ECGs available DD/ [id number] Critical Care Time Critical Care Time Critical Care Time: Yes Total Critical Care Time: 37 Attestation: I spent 37 minutes of Critical Care Time with this patient. This does not include time spent on separately reported billable procedures. Discharge Plan Discharge Clinical Impression: Alcohol withdrawal, Alcohol abuse Patient Disposition: Admitted As Inpatient
--- NOTE | 2025-05-20 08:46 | ECG_ITS ---
Test Reason : ALCOHOL USE Blood Pressure : */* mmHG Vent. Rate : 81 BPM Atrial Rate : 81 BPM P-R Int : 114 ms QRS Dur : 102 ms QT Int : 396 ms P-R-T Axes : 86 70 47 degrees QTcB Int : 460 ms Artifact in tracing Normal sinus rhythm Probably normal EKG No previous ECGs available Referred By: Nargis Sheffield Electronically Signed By: JUSTYN CHONG
[2025-05-20 08:57] LABS: MANUAL DIFF FLAG NO
[2025-05-20 09:00] LABS: Hematocrit 43.0 % (42.0-52.0); Hemoglobin 15.4 g/dl (14.0-18.0); Imm Gran Abs Auto 0.05 X10*3/uL (0.00-0.03); Imm Gran Pct Auto 0.7 % (0.0-0.4); Lymphocytes Absolute Auto 1.0 X10*3/uL (1.2-4.9); Mean Corpuscular HGB Conc 35.8 g/dl (31.0-36.0); Mean Corpuscular Hemoglobin 36.4 pg (27.0-33.0); Mean Corpuscular Volume 101.7 fL (80.0-98.0); NRBC Abs Auto 0.000 X10*3/uL (0.0-0.012); NRBC Pct Auto 0.0 /100WBC (0.0-0.2); Platelet Count 153 X10*3/uL (160-400); Red Blood Count 4.23 X10*6/uL (4.60-5.80); White Blood Count 7.5 X10*3/uL (4.8-10.8)
[2025-05-20 09:03] LABS: Appearance Urine Clear; Glucose Urine UA Negative (Negative); PH 8.0 (5.0-9.0); Specific Gravity - Urine >= 1.030 (1.005-1.025); UMIC TRIGGER UACC YES
[2025-05-20 09:14] LABS: UACC Culture Trigger YES
[2025-05-20 09:17] LABS: Alanine Aminotransferase 196 U/L (0-40); Albumin Level 4.8 g/dL (3.5-5.0); Alkaline Phosphatase 206 U/L (39-117); Anion Gap 17 (12-20); Aspartate Amino Transferase 287 U/L (5-37); Blood Urea Nitrogen 17 mg/dL (9-16); Calcium 10.4 mg/dL (8.4-10.2); Carbon Dioxide 32 mmol/L (22-29); Chloride 96 mmol/L (96-108); Creatinine Clr Calc Pharmacy 109.5; Estimated Glomerular Filt Rate > 60; Lipase 147 U/L (8-78); Potassium 4.1 mmol/L (3.3-5.1); Sodium 141 mmol/L (135-145); Total Protein 8.1 g/dL (6.5-8.0)
[2025-05-20] MEDS: PHENobarbitaL sodium 130 MG/ML IM ONCE 260 MG IM (09:26)
--- OUTSIDE RECORDS SUMMARY | 2025-05-20 10:57 | XMS_ITS | Clinical Summary ---
Author Organization [facility] ity Address [address] [place] [address] Care Team Providers Care Manager Activities Name Role Phone Unavailable Primary Care Provider [...] 2023 Zoster Vaccines (1 of 2) 2023 Cholesterol Screening (Lipid Panel) 06/29/2024 Colorectal Cancer Screening: Colonoscopy 06/29/2024 HIV Screening 06/29/2024 Hepatitis C Screening 06/29/2024 Social Influencers of Health Screening 06/29/2024 Depression Screening 09/03/2024 COVID-19 Vaccine ( - 2023-2 5 season) 2025 Influenza Vaccine (#1) 2025 HIB Vaccines Aged Out No longer eligi [...] age to complete this topic Meningococcal B Vaccine Aged Out No l onger eligible based on patient's age to complete this topic RSV Immunization Patients Un lorenza 20 months Aged Out No longer eligible b ased on patient's age to complete this topic Varicella Vaccines Aged Out No longer eligible based on patient's age to complete this topic
--- OUTSIDE RECORDS SUMMARY | 2025-05-20 10:57 | XMS_ITS | Clinical Summary ---
Author Organization [facility] Address [address] [place] [address] Care Team Providers Care Program Support Specialist Name Role Phone Unavailable Primary Care Provider Unavailabl e Allergies No known active allergies Medications * This document contains information received from the source organization and may not represent a complete record from that organization. folic acid (Folvite) 1 MG tabletIndicatio ns:Alcohol use disorder, severe, dependence (CMS/HCC) Take 1 tablet (1 mg) by mouth Once per day. 90 tablet 2 11/04/2024 08/01/20 25 Active thiamine (Vitamin B-1) 100 MG tabletIndicatio ns:Alcohol use disorder, severe, dependence (CMS/HCC) Take 1 tablet (100 mg) by mouth Once per day. 90 tablet 2 11/04/2024 08/01/20 25 Active Multiple Vitamin (multivitamin) tabletIndicatio ns:Alcohol use disorder, severe, dependence (CMS/HCC) Take 1 tablet by mouth Once per day. 90 tablet 2 11/04/2024 08/01/20 25 Active naltrexone (Depade) 50 MG tabletIndicatio ns:Alcohol use disorder, severe, dependence (CMS/HCC) May take with food. 30 tablet 5 11/04/2024 Active hydrOXYzine pamoate (Vistaril) 25 MG capsule 1 or 2 capsules PO at bedtime prn sleep. 30 capsule 11/25/2024 Active varenicline (Chantix) 1 MG tabletIndicatio ns:Tobacco use disorder Take 1 tablet (1 mg) by mouth 2 times daily. Take with full glass of water. 84 tablet 1 02/17/2025 Active Active Problems Problem Noted Date Diagnosed Date Alcohol use disorder 10/28/2024 History of substance use 10/28/2024 Encounters Date Type Department Care Team Description 04/24/2025 10:30 AM EDT Office Visit [address] [address] Rafael Prieto MD Alcohol use disorder, severe, dependence (CMS/HCC) (Primary Dx); Tobacco use disorder 04/24/2025 Travel 03/18/[address] [address] Rafael Prieto MD 03/18/2025 Travel 03/17/2025 11:15 AM EDT Telemedicine [address] [address] Rafael Prieto MD Alcohol use disorder, severe, dependence (CMS/HCC) (Primary Dx); Tobacco use disorder 03/16/[address] [address] Rafael Prieto MD 02/17/[address] [address] Rafael Prieto MD 02/17/2025 Travel from Last 3 Months Social History Tobacco Use Types Packs/Day Years Used Date Smoking Tobacco: Every Day Cigarettes Smokeless Tobacco: Never Tobacco Cessation:Ready to Q uit: Not Asked; Counseling Given: Not Answered Depression Answer Date Recorded Patient Health Questionnaire-9 [...] Sign Reading Time Taken Comments Blood Pressure 146/87 12/09/2024 10:06 AM EDT Pulse 102 12/09/2024 10:06 AM EDT Temperature 36.3 C (97.3 F) 12/09/2024 10:06 AM EDT Respiratory Rate 20 11/25/2024 10:14 AM EDT Oxygen Saturation - - Inhaled Oxygen Concentration - - Weight - - Height - - Body Mass Index - - Plan of Treatment Upcoming Encounters Date Type Department Care Team (Late st Contact Info) Description 05/22/2025 10:30 AM EDT Office Visit [facility] [address] [place] [address] Rafael Prieto MD [address] [place] [address] Health Maintenance Due Date Last Done Comments CT Colonography 1973 Colonoscopy 1973 Colorectal Cancer Screening 1973 FIT DNA/Cologuard 1973 FIT 1973 FOBT 1973 SDOH Screening 1973 Sigmoidoscopy 1973 Disability Screening 1973 Alcohol/Substance Use Screening 1985 Family Planning (PISQ) 1988 Hepatitis B Vaccines (1 of 3 - 19+ 3-dose series) 1992 Pneumococcal Vaccine: 50+ Years (1 of 2 - PCV) 1992 DTaP/Tdap/Td Vaccines (2 - T d or Tdap) 06/13/2022 06/13/2012 Zoster Vaccines (1 of 2) 2023 COVID-19 Vaccine (1 - 2023-2 5 season) 2025 Influenza Vaccine (#1) 2025 Depression Screening 10/28/2025 10/28/2024, 10/28/2024 Tobacco Screening 12/09/2025 12/09/2024 Lipid Panel 11/11/2029 11/11/2024 RSV Patients and Patients Aged 60 years [...] POCT MARY ELLEN-14 URINE DRUG SCREEN Routine 04/24/2025 10:36 AM EDT Alcohol use disorder, severe, dependence (CMS/HCC) LIPID PANEL WITH REFLEX TO DIRECT LDL Routine 11/11/2024 9:54 AM EDT Alcohol use disorder, severe, dependence (CMS/HCC) HEPATITIS C AB W/REFL TO HCV RNA, QN, PCR Routine 10/28/2024 11:29 AM EST Alcohol abuse, uncomplicated HIV 1/2 ANTIGEN/ANTIBODY, FOURTH GENERATION W/RFL Routine 10/28/2024 11:29 AM EST Alcohol abuse, uncomplicated from Last 3 Months or Most Recently Relevant to Health Maintenance Results * (ABNORMAL) POCT MARY ELLEN-14 Urine Drug Screen (04/24/2025 10:36 AM EDT) THC Negative Negative Cocaine Screen, Urine Positive(A) Negative Opiate Screen, Urine Negative Negative Methamphetamine Screen Urine Negative Negative Amphetamine Screen, Urine Negative Negative Benzodiazepines Screen, Urine Negative Negative Barbiturate Screen, Urine Negative Negative Methadone Screen, Urine Negative Negative Buprenophine Screen, Urine Negative Negative TCA, Urine Negative Negative MDMA Urine Negative Negative ng/mL Oxycodone Screen, Urine Negative Negative Phencyclidine (PCP), Urine Negative Negative Fentanyl, Urine Negative Negative Urine Urine specimen obtained by clean catch procedure / Unknown 04/24/2025 10:36 AM EDT Rafael Prieto MD POINT OF CARE TEST ENTER/EDIT ORDERABLES Final Result * (ABNORMAL) Lipid Panel with Reflex to Direct LDL (11/11/2024 9:54 AM EDT) Triglycerides 101 <150 mg/dL [facility] Comment:Desirable Triglyceri de: less than 150 mg/dLBorderline High Triglyceride 150-199 mg/dLHigh Triglyceride: 200-499 mg/dLVery High Triglyceride: greater than or equal to 5OO mg/dL Cholesterol 264(H) <200 mg/dL [facility] Comment:Desirable Cholestero l: less than 200 mg/dLBorderline High Cholesterol: 200-239 mg/dLHigh Cholesterol: greater than 239 mg/dL LDL Cholesterol Calculated 152(H) <100 mg/dL [facility] Comment:Desirable LDL: less than 100 mg/dLNear Optimal/Above Optimal LDL: 110- 129 mg/dLBorderline High LDL: 130-159 mg/dLHigh LDL: 160-189 mg/dLVery High LDL: greater than or equal to 190 mg/dL HDL Cholesterol 92 >40 mg/dL [facility] Comment:Desirable HDL: great er than 40 mg/dL Note: This HDL assay may give artificially low results in patients with liver disease. Blood 11/11/2024 9:54 AM EDT 11/11/2024 11:29 AM EDT us Rafael Prieto MD LAB BLOOD ORDERABLES Final Res ult Performing Organization Address [facility] de Phone Number [facility] [address] [place] [phone] * Hepatitis C Antibody with Reflex to HCV, RNA, Quantitative, Real-Time PCR (10/28/2024 11:29 AM EST) Hepatitis C Antibody Nonreactive Nonreactive [facility] Comment:Antibodies to HCV no t detected; does not exclude early acuteHCV infection. Blood Venous blood specimen / Unknown 10/28/2024 11:29 AM EST 10/28/2024 1:06 PM EST us Rafael Prieto MD LAB BLOOD ORDERABLES Final Res ult Performing Organization Address [facility] Co de Phone Number [facility] [address] [place] [phone] * HIV-1/2 Antigen and Antibodies, Fourth Generation, with Reflexes (10/28/2024 11:29 AM EST) HIV AB/AG Nonreactive Nonreactive [facility] Comment:HIV-1 p24 Ag and/or HIV-1/HIV-2 Ab not detected.A test result that is nonreactive does not exclude thepossibility of exposure to or infection with HIV-1 and/orHIV-2. Nonreactive results in this assay for individualswith prior exposure to HIV-1 and/or HIV-2 may be due toantigen and antibody levels that are below the limit ofdetection of this assay.The SAVO HIV Ag/Ab Combo assay result andsupplemental assay results should be interpreted inconjunction with the patient's clinical presentation,history and other laboratory results. If the results areinconsistent with clinical evidence, additional testing issuggested to confirm the result. Blood Venous blood specimen / Unknown 10/28/2024 11:29 AM EST 10/28/2024 1:06 PM EST us Rafael Prieto MD LAB BLOOD ORDERABLES Final Res ult [facility] [address] [place] [address] [phone] from Last 3 Months or Most Recently Relevant to Health Maintenance [facility]
--- NOTE | 2025-05-20 11:41 | PHA.MEDREC ---
Addendum entered by Brandon Elaine PharmD 05/20/25 11:47: reviewed Original Note: Pharmacy Consult ? Medication Reconciliation Pharmacy has completed the medication reconciliation.
[2025-05-20] MEDS: PHENobarbitaL sodium 130 MG/ML VIAL IM Q3Hx2 200 MG IM ×2 (12:14→15:10)
--- NOTE | 2025-05-20 12:54 | PM.IMHP ---
History of Present Illness Date of Service: 05/20/25 Chief Complaint: alcohol withdrawal Pt with medical hx alcohol use who presented to ed with withdrawal sx. Upon my encounter with pt in ed, he appears mildy restless, His family is at bedside. He states that his last drink was over 24 hrs ago and he drink 2-3 pints everyday and had never had withdrawal sx before. He also complains of abd pain on rt and left side of abdomen and states it gets worse with coughing. He also has mild nausea. He denies any fever, chills, focal weakness, chest pain, diarrhea, vomiting, BOYCE or syncope. He states that he wants to seek help for his alcohol dependence. Review of Systems Constitutional: Constitutional: Reports body ache(s) and Denies weakness Eyes: Eyes: Denies blurry vision and Denies change in vision ENT: Denies dizziness Cardiovascular: Cardiovascular: Denies chest pain, Denies lightheadedness and Denies dyspnea Respiratory: Respiratory: Reports no additional respiratory complaints and Denies dyspnea Gastrointestinal: Gastrointestinal: Reports abdominal pain, Denies constipation, Reports heartburn, Denies diarrhea and Denies vomiting Genitourinary: Genitourinary: Denies urinary hesitancy, Denies urinary incontinence and Denies urinary urgency Musculoskeletal: Musculoskeletal: Reports no additional musculoskeletal complaints and Denies tingling Neurologic: Denies burning sensations, Denies dizziness, Denies focal weakness, Denies tingling, Denies paresthesias, Reports tremor(s) and Denies weakness Psychiatric: Psychiatric: Reports as per [facility] Medical History No known health problems Social History Alcohol intake: current Alcohol intake frequency: 3 or more drinks per day Alcohol type: hard liquor Use of substances other than those prescribed or required for medical reasons: No Advance Directives: No Advance Directives Information Provided: No Meds Allergies Allergy/AdvReac Type Severity Reaction Status Date / Time No Known Allergies Allergy Verified 05/20/25 08:37 Active Medications: Current Medications Acetaminophen (Acetaminophen 325 Mg Tablet) 650 mg PO Q6H PRN PRN Reason: Pain, Mild 1-3,fever,headache Calcium Carbonate (Calcium Carbonate 750 Mg Tab.Chew) 750 mg PO Q4H PRN PRN Reason: Heartburn Clonidine HCl (Clonidine Hcl 0.1 Mg Tablet) 0.1 mg PO RQ8H [facility]; Protocol Folic Acid (Folic Acid 1 Mg Tablet) 1 mg PO DAILY [facility] Stop: 05/23/25 10:44 Last Admin: 05/20/25 11:10 Dose: 1 mg Hydroxyzine HCl (Hydroxyzine Hcl 25 Mg Tablet) 25 mg PO Q6H PRN PRN Reason: Anxiety Magnesium Hydroxide (Milk Of Magnesia 30 Ml Oral.Susp) 30 ml PO DAILY PRN PRN Reason: Constipation Melatonin (Melatonin 3 Mg Tablet) 6 mg PO BEDTIME PRN PRN Reason: Insomnia Multivitamins/Vitamin C (Multivitamin Tablet) 1 tab PO DAILY [facility] Stop: 05/24/25 08:59 Omeprazole (Omeprazole 20 Mg Capsule.Dr) 20 mg PO DAILY@0630 [facility] Pharmacy Consult (Consult Rx Etoh Phenob Im/Po) 1 each MISCELLANE ONCE PRN; Protocol PRN Reason: Consult order Phenobarbital (Phenobarbital 15 Mg Tablet) 45 mg PO BID [facility] Stop: 05/22/25 09:01 Phenobarbital (Phenobarbital 30 Mg Tablet) 30 mg PO BID [facility] Stop: 05/23/25 21:01 Phenobarbital (Phenobarbital 30 Mg Tablet) 30 mg PO BEDTIME [facility] Stop: 05/25/25 21:01 Phenobarbital Sodium (Phenobarbital Sodium 130 Mg/Ml Vial Im Q3hx2) 200 mg IM Q3H [facility] Stop: 05/20/25 15:31 Last Admin: 05/20/25 12:14 Dose: 200 mg Sodium Chloride (0.9 % Sodium Chloride Flush 3 Ml Syringe) 3 ml IVFLUSH [facility] Thiamine HCl (Thiamine Hcl 100 Mg Tablet) 100 mg PO DAILY [facility] Stop: 05/23/25 10:44 Last Admin: 05/20/25 11:10 Dose: 100 mg Home Medications ?Medication ?Instructions ?Recorded ?Confirmed ?Last Taken ?Type multivitamin 1 tab PO DAILY 05/20/25 05/20/25 05/18/25 History Physical Exam Vital Signs and Narrative: Vital Signs: Last Vital Signs Temp 97.5 F 05/20/25 12:10 Pulse 78 05/20/25 12:10 Resp 18 05/20/25 12:10 BP 149/84 H 05/20/25 12:10 Pulse Ox 94 05/20/25 12:10 O2 Del Method Room Air 05/20/25 12:10 BMI result Body Mass Index 19.6 A&Ox3. awake and alert, answering questions appropriately Heart sinus tachy OA, no M/R Lungs: CTAB, on RA, no wheezing or rales Abdomen: Soft NT, ND extremities: NO BRENDON neuro: restless, no focal weakness, sensations intact, mild tremors in hands psych: cooperative Skin: no rash Results Labs 05/20/25 08:49 05/20/25 08:49 Labs: Laboratory Results - last 24 hr 05/20/25 08:49 MCV 101.7 H MCH 36.4 H MCHC 35.8 RDW 12.9 Plt Count 153 L D MPV 10.2 Immature Gran % (Auto) 0.7 H Neut % (Auto) 69.5 Lymph % (Auto) 13.6 L [place] % (Auto) 15.6 H Eos % (Auto) 0.1 Baso % (Auto) 0.5 Lymph # (Auto) 1.0 L [place] # (Auto) 1.2 Eos # (Auto) 0.0 Baso # (Auto) 0.0 Abs Immat Gran (auto) 0.05 H Absolute Neuts (auto) 5.2 Absolute Nucleated RBC 0.000 Nucleated RBC % (auto) 0.0 Anion Gap 17 Estim Creat Clear Calc 109.5 Estimated GFR > 60 Random Glucose 124 H Calcium 10.4 H Total Bilirubin 1.2 H AST 287 H ALT 196 H Alkaline Phosphatase 206 H Total Protein 8.1 H Albumin 4.8 Lipase 147 H Urine Color Dark Yellow Urine Appearance Clear Urine pH 8.0 Ur Specific [place] >= 1.030 H Urine Protein 100 (2+) H Urine Glucose (UA) Negative Urine Ketones >=160 Urine Blood Negative Urine Nitrite Positive H Ur Leukocyte Esterase Small (1+) H Urine RBC 0-2 Urine WBC 0-5 Ur Squamous Epith Cells 0-2 Urine Bacteria Trace Hyaline Casts 0-2 Ethyl Alcohol < 10 Assessment and Plan (1) Alcohol withdrawal: Qualifiers: Complication of substance-induced condition: with unspecified complication Qualified Code(s): F10.939 - Alcohol use, unspecified with withdrawal, unspecified Status: Acute (2) Alcohol abuse: Status: Acute (3) High blood pressure: Status: Acute (4) Dyspepsia: Status: Acute Plan Alcohol withdrawal alcohol abuse dyspepsia High BP: pt seen in ed, appears somewhat restless and has mild tremors in hands, complains of pain on both sides of abdomen, that gets worse with breathing, had CIWA of 14 OA, - phenobarb ciwa protocol - tele - addiction consult - supplements with folic acid, MV, thiamine -zofran for nausea - clonidine for high blood pressure in the setting of alcohol withdrawal - regular diet, - check Mg - PPI for dyspepsia this pt qualifies for 2 MN stay due to high risk of alcohol withdrwal with elevated CIWA leading to DTs/ seizures. assessment and plan coordination time spent 70 min Quality Stroke Does the patient have a stroke diagnosis?: No VTE Prior VTE?: No VTE Risk Level:: Medical - low VTE Device Contraindication: Treatment Not Indicated VTE Drug Contraindication: Treatment Not Indicated
--- NOTE | 2025-05-20 13:30 | HO.NURTONUR ---
Addendum entered by Rafal Guzman RN 05/20/25 17:53: alert, able to make needs known, steady gait without assistance, has a 20 r ac, wants to go to detox, thats what brought him here Addendum entered by Ml Cooper 05/20/25 17:02: Pt requesting to go outside to smoke. Given nicotine patch and instructed to stay inside. Medicated per NOV. Family at bedside. Pt waiting for bed. Original Note: Pt is a 49yo M with hx of daily alcohol intake. Reports 1 pint daily. Last drink approx 24hrs ago. Pt states he has never gone more than 24hrs without ETOH so is unsure if he has withdraw symptoms. CIWA elevated. Pt with obvious tremors. Phenobarb protocol initiated. Pt is pleasant and cooperative. Denies SI/HI/AVH. Pt is NSR on the monitor. Clear BBS. Denies n/v/d. 20gRAC. Pt has received 1LNS and phenobarb IM x2. Voids using urinal. Ambulates independently.
[2025-05-20 14:12] LABS: Magnesium 1.7 mg/dL (1.6-2.6)
[2025-05-20] MEDS: 0.9 % Sodium Chloride Flush 3 ML SYRINGE IVFLUSH ×2 (15:11→20:42)
[2025-05-20] MEDS: Nicotine 7 MG PATCH.TD24 TRANSDERMA (16:15)
[2025-05-21 03:54] VITALS: BP 132/82; PULSE 88; RESP 16; TEMP 36.7; O2SAT 95
[2025-05-21 05:26] LABS: HBS Num1 0.00 mIU/mL (0-7.99); HBc Num1 0.05 S/CO (0.00-0.79); HBsAGNum1 0.44 S/CO (0.00-0.99); Hepatitis A Antibody IgM 0.16 Index (0-0.79); Hepatitis B Surface Antigen Negative (Negative); ~HepC Num1 0.12 S/CO (0.00-0.79); ~Hepatitis A Antibody IgM Nonreactive (Nonreactive); ~Hepatitis B Surface Antibody NONREACTIVE (Nonreactive); ~Hepatitis C Antibody Nonreactive (Nonreactive)
[2025-05-21 06:08] LABS: Hematocrit 42.8 % (42.0-52.0); Hemoglobin 15.1 g/dl (14.0-18.0); Mean Corpuscular HGB Conc 35.3 g/dl (31.0-36.0); Mean Corpuscular Hemoglobin 36.2 pg (27.0-33.0); Mean Corpuscular Volume 102.6 fL (80.0-98.0); NRBC Abs Auto 0.000 X10*3/uL (0.0-0.012); NRBC Pct Auto 0.0 /100WBC (0.0-0.2); Platelet Count 127 X10*3/uL (160-400); Red Blood Count 4.17 X10*6/uL (4.60-5.80); White Blood Count 6.2 X10*3/uL (4.8-10.8)
[2025-05-21 06:35] LABS: Alanine Aminotransferase 191 U/L (0-40); Albumin Level 4.0 g/dL (3.5-5.0); Alkaline Phosphatase 188 U/L (39-117); Anion Gap 13 (12-20); Aspartate Amino Transferase 243 U/L (5-37); Blood Urea Nitrogen 14 mg/dL (9-16); Calcium 9.6 mg/dL (8.4-10.2); Carbon Dioxide 28 mmol/L (22-29); Chloride 102 mmol/L (96-108); Creatinine Clr Calc Pharmacy 125.6; Estimated Glomerular Filt Rate > 60; Potassium 4.2 mmol/L (3.3-5.1); Sodium 139 mmol/L (135-145); Total Protein 7.0 g/dL (6.5-8.0)
[2025-05-21 07:16] VITALS: BP 135/83; PULSE 90; RESP 18; TEMP 36.2; O2SAT 97
[2025-05-21] MEDS: Nicotine 7 MG PATCH.TD24 TRANSDERMA (08:09)
[2025-05-21] MEDS: 0.9 % Sodium Chloride Flush 3 ML SYRINGE IVFLUSH (08:14)
--- NOTE | 2025-05-21 08:24 | P.PNIM_ITS ---
Subjective Subjective Date of Service: 05/21/25 Interval History: elevated lft Review of Systems Review of Systems: Yes all other systems are reviewed and are negative Physical Exam 2 Vital Signs: Vital Signs: Last Vital Signs Temp 97.1 F 05/21/25 07:16 Pulse 90 05/21/25 07:16 Resp 18 05/21/25 07:16 BP 135/83 05/21/25 07:16 Pulse Ox 97 05/21/25 07:16 O2 Del Method Room Air 05/21/25 07:16 BMI result Body Mass Index 21.4 Objective Data Active Medications Acetaminophen (Acetaminophen 325 Mg Tablet) 650 mg PO Q6H PRN PRN Reason: Pain, Mild 1-3,fever,headache Last Admin: 05/21/25 08:12 Dose: 650 mg Documented By: ANSELMO Calcium Carbonate (Calcium Carbonate 750 Mg Tab.Chew) 750 mg PO Q4H PRN PRN Reason: Heartburn Clonidine HCl (Clonidine Hcl 0.1 Mg Tablet) 0.1 mg PO RQ8H [facility]; Protocol Last Admin: 05/21/25 08:08 Dose: 0.1 mg Documented By: ANSELMO Folic Acid (Folic Acid 1 Mg Tablet) 1 mg PO DAILY [facility] Stop: 05/23/25 10:44 Last Admin: 05/21/25 08:08 Dose: 1 mg Documented By: ANSELMO Hydroxyzine HCl (Hydroxyzine Hcl 25 Mg Tablet) 25 mg PO Q6H PRN PRN Reason: Anxiety Last Admin: 05/20/25 20:40 Dose: 25 mg Documented By: MARQUEZ Magnesium Hydroxide (Milk Of Magnesia 30 Ml Oral.Susp) 30 ml PO DAILY PRN PRN Reason: Constipation Melatonin (Melatonin 3 Mg Tablet) 6 mg PO BEDTIME PRN PRN Reason: Insomnia Multivitamins/Vitamin C (Multivitamin Tablet) 1 tab PO DAILY [facility] Stop: 05/24/25 08:59 Last Admin: 05/21/25 08:09 Dose: 1 tab Documented By: ANSELMO Nicotine (Nicotine 7 Mg Patch.Td24) 7 mg TRANSDERMA DAILY [facility] Last Admin: 05/21/25 08:09 Dose: 7 mg Documented By: ANSELMO Omeprazole (Omeprazole 20 Mg Capsule.Dr) 20 mg PO DAILY@0630 [facility] Last Admin: 05/21/25 05:47 Dose: 20 mg Documented By: MARQUEZ Ondansetron HCl (Ondansetron Hcl 4 Mg/2 Ml Vial) 4 mg IVPUSH Q8H PRN PRN Reason: Nausea and Vomiting Pharmacy Consult (Consult Rx Etoh Phenob Im/Po) 1 each MISCELLANE ONCE [facility]; Protocol PRN Reason: Consult order Phenobarbital (Phenobarbital 15 Mg Tablet) 45 mg PO BID [facility] Stop: 05/22/25 09:01 Last Admin: 05/21/25 08:08 Dose: 45 mg Documented By: ANSELMO Phenobarbital (Phenobarbital 30 Mg Tablet) 30 mg PO BID [facility] Stop: 05/23/25 21:01 Phenobarbital (Phenobarbital 30 Mg Tablet) 30 mg PO BEDTIME [facility] Stop: 05/25/25 21:01 Sodium Chloride (0.9 % Sodium Chloride Flush 3 Ml Syringe) 3 ml IVFLUSH QSHIFT [facility] Last Admin: 05/21/25 08:14 Dose: 3 ml Documented By: ANSELMO Thiamine HCl (Thiamine Hcl 100 Mg Tablet) 100 mg PO DAILY [facility] Stop: 05/23/25 10:44 Last Admin: 05/21/25 08:08 Dose: 100 mg Documented By: ANSELMO Labs 05/21/25 05:39 05/21/25 05:39 Labs: Laboratory Results - last 24 hr 05/20/25 05/20/25 05/21/25 08:49 11:14 05:39 MCV 101.7 H 102.6 H MCH 36.4 H 36.2 H MCHC 35.8 35.3 RDW 12.9 12.7 Plt Count 153 L D 127 L MPV 10.2 10.7 Immature Gran % (Auto) 0.7 H Neut % (Auto) 69.5 Lymph % (Auto) 13.6 L [place] % (Auto) 15.6 H Eos % (Auto) 0.1 Baso % (Auto) 0.5 Lymph # (Auto) 1.0 L [place] # (Auto) 1.2 Eos # (Auto) 0.0 Baso # (Auto) 0.0 Abs Immat Gran (auto) 0.05 H Absolute Neuts (auto) 5.2 Absolute Nucleated RBC 0.000 0.000 Nucleated RBC % (auto) 0.0 0.0 Anion Gap 17 13 Estim Creat Clear Calc 109.5 125.6 Estimated GFR > 60 > 60 Random Glucose 124 H 100 Calcium 10.4 H 9.6 D Magnesium 1.7 Total Bilirubin 1.2 H 0.7 AST 287 H 243 H ALT 196 H 191 H Alkaline Phosphatase 206 H 188 H Total Protein 8.1 H 7.0 Albumin 4.8 4.0 Lipase 147 H Urine Color Dark Yellow Urine Appearance Clear Urine pH 8.0 Ur Specific [place] >= 1.030 H Urine Protein 100 (2+) H Urine Glucose (UA) Negative Urine Ketones >=160 Urine Blood Negative Urine Nitrite Positive H Ur Leukocyte Esterase Small (1+) H Urine RBC 0-2 Urine WBC 0-5 Ur Squamous Epith Cells 0-2 Urine Bacteria Trace Hyaline Casts 0-2 Ethyl Alcohol < 10 Hepatitis A IgM Ab Nonreactive Hep Bs Antigen Negative Hep Bs Antibody NONREACTIVE Hep B Core Total Ab Nonreactive Hepatitis C Ab (EIA) Nonreactive Assessment and Plan (1) Alcohol abuse: Status: Acute Quality Stroke Does the patient have a stroke diagnosis?: No VTE Prior VTE?: No VTE Risk Level:: Medical - low VTE Device Contraindication: Treatment Not Indicated VTE Drug Contraindication: Treatment Not Indicated
--- NOTE | 2025-05-21 09:36 | HO.ADDICTCON ---
History of Present Illness Date of Service: 05/21/2025 Chief Complaint: alcohol withdrawal Reason for Consult: AUD Sources of Information: patient interviewed and chart reviewed HPI Narrative: Patient is a 49 year old male who presented to [facility] ED c/o alcohol withdrawal. CIWA 14 in ED, initiated on phenobarbital and medically admitted. Elevated liver enzymes and lipase. Patient seen in room 485. He is awake, eating breakfast, pleasant and engaged in interview. He states he has been drinking btwn 1-2 pints of liquor daily. To t/w he reported binging for one week, and abstaining for some time before that, however at admission he reported no periods of abstinence. He states he had been taking naltrexone daily up until a week or 2 ago. He states he is a patient of Dr. Prieto at [facility] where he is treated for his AUD, and also engaged with a reading coach. He denies any history of inpatient/ATS level of care. Denies any other substance use, aside from trying heroin once a few years ago which resulted in an overdose requiring narcan. In terms of withdrawal, he reports feeling much improved. Tremor is minimal. No nausea, loose stools, or anxiety. No diaphoresis or restlessness noted. CIWA scores have been 0 Medical Evaluation Reviewed: Yes Review of Systems Constitutional: Reports as per HPI Diagnostics Vital Signs (24Hr): Vital Signs - 24 hr 05/20/25 12:10 05/20/25 14:24 05/20/25 15:10 Temperature 97.5 F 98.5 F Pulse Rate 78 92 Respiratory Rate 18 16 Blood Pressure 149/84 H 137/70 137/70 Pulse Oximetry 94 95 Oxygen Delivery Method Room Air Room Air 05/20/25 18:04 05/20/25 20:00 05/21/25 03:54 Temperature 97.6 F 98.0 F 98.0 F Pulse Rate 94 83 88 Respiratory Rate 16 16 16 Blood Pressure 129/84 144/82 H 132/82 Pulse Oximetry 99 97 95 Oxygen Delivery Method Room Air Room Air Room Air 05/21/25 07:16 Temperature 97.1 F Pulse Rate 90 Respiratory Rate 18 Blood Pressure 135/83 Pulse Oximetry 97 Oxygen Delivery Method Room Air BMI result Body Mass Index 21.4 Labs 05/21/25 05:39 05/21/25 05:39 Labs: Laboratory Results - last 48 hr 05/20/25 05/20/25 05/21/25 08:49 11:14 05:39 WBC 7.5 6.2 RBC 4.23 L 4.17 L Hgb 15.4 15.1 Hct 43.0 42.8 MCV 101.7 H 102.6 H MCH 36.4 H 36.2 H MCHC 35.8 35.3 RDW 12.9 12.7 Plt Count 153 L D 127 L MPV 10.2 10.7 Immature Gran % (Auto) 0.7 H Neut % (Auto) 69.5 Lymph % (Auto) 13.6 L [place] % (Auto) 15.6 H Eos % (Auto) 0.1 Baso % (Auto) 0.5 Lymph # (Auto) 1.0 L [place] # (Auto) 1.2 Eos # (Auto) 0.0 Baso # (Auto) 0.0 Abs Immat Gran (auto) 0.05 H Absolute Neuts (auto) 5.2 Absolute Nucleated RBC 0.000 0.000 Nucleated RBC % (auto) 0.0 0.0 Sodium 141 139 Potassium 4.1 4.2 Chloride 96 102 Carbon Dioxide 32 H 28 Anion Gap 17 13 BUN 17 H 14 Creatinine 0.64 0.61 Estim Creat Clear Calc 109.5 125.6 Estimated GFR > 60 > 60 Random Glucose 124 H 100 Calcium 10.4 H 9.6 D Magnesium 1.7 Total Bilirubin 1.2 H 0.7 AST 287 H 243 H ALT 196 H 191 H Alkaline Phosphatase 206 H 188 H Total Protein 8.1 H 7.0 Albumin 4.8 4.0 Lipase 147 H Urine Color Dark Yellow Urine Appearance Clear Urine pH 8.0 Ur Specific [place] >= 1.030 H Urine Protein 100 (2+) H Urine Glucose (UA) Negative Urine Ketones >=160 Urine Blood Negative Urine Nitrite Positive H Ur Leukocyte Esterase Small (1+) H Urine RBC 0-2 Urine WBC 0-5 Ur Squamous Epith Cells 0-2 Urine Bacteria Trace Hyaline Casts 0-2 Ethyl Alcohol < 10 Hepatitis A IgM Ab Nonreactive Hep Bs Antigen Negative Hep Bs Antibody NONREACTIVE Hep B Core Total Ab Nonreactive Hepatitis C Ab (EIA) Nonreactive Mental Status Exam Mental Status Exam Patient Appearance: Appropriate Level of Consciousness: Awake, Appropriate and Alert Patient Behavior: Appropriate and Talkative Affect Description: Calm Speech Pattern: Clear Hallucinations: None Thought Process: Intact Thought Content: positive for Intact and positive for [place] Judgement: Good Medications Medications Current Medications Acetaminophen (Acetaminophen 325 Mg Tablet) 650 mg PO Q6H PRN PRN Reason: Pain, Mild 1-3,fever,headache Last Admin: 05/21/25 08:12 Dose: 650 mg Calcium Carbonate (Calcium Carbonate 750 Mg Tab.Chew) 750 mg PO Q4H PRN PRN Reason: Heartburn Clonidine HCl (Clonidine Hcl 0.1 Mg Tablet) 0.1 mg PO RQ8H [facility]; Protocol Last Admin: 05/21/25 08:08 Dose: 0.1 mg Folic Acid (Folic Acid 1 Mg Tablet) 1 mg PO DAILY [facility] Stop: 05/23/25 10:44 Last Admin: 05/21/25 08:08 Dose: 1 mg Hydroxyzine HCl (Hydroxyzine Hcl 25 Mg Tablet) 25 mg PO Q6H PRN PRN Reason: Anxiety Last Admin: 05/20/25 20:40 Dose: 25 mg Magnesium Hydroxide (Milk Of Magnesia 30 Ml Oral.Susp) 30 ml PO DAILY PRN PRN Reason: Constipation Melatonin (Melatonin 3 Mg Tablet) 6 mg PO BEDTIME PRN PRN Reason: Insomnia Multivitamins/Vitamin C (Multivitamin Tablet) 1 tab PO DAILY [facility] Stop: 05/24/25 08:59 Last Admin: 05/21/25 08:09 Dose: 1 tab Nicotine (Nicotine 7 Mg Patch.Td24) 7 mg TRANSDERMA DAILY [facility] Last Admin: 05/21/25 08:09 Dose: 7 mg Omeprazole (Omeprazole 20 Mg Capsule.Dr) 20 mg PO DAILY@0630 [facility] Last Admin: 05/21/25 05:47 Dose: 20 mg Ondansetron HCl (Ondansetron Hcl 4 Mg/2 Ml Vial) 4 mg IVPUSH Q8H PRN PRN Reason: Nausea and Vomiting Pharmacy Consult (Consult Rx Etoh Phenob Im/Po) 1 each MISCELLANE ONCE [facility]; Protocol PRN Reason: Consult order Phenobarbital (Phenobarbital 15 Mg Tablet) 45 mg PO BID [facility] Stop: 05/22/25 09:01 Last Admin: 05/21/25 08:08 Dose: 45 mg Phenobarbital (Phenobarbital 30 Mg Tablet) 30 mg PO BID [facility] Stop: 05/23/25 21:01 Phenobarbital (Phenobarbital 30 Mg Tablet) 30 mg PO BEDTIME [facility] Stop: 05/25/25 21:01 Sodium Chloride (0.9 % Sodium Chloride Flush 3 Ml Syringe) 3 ml IVFLUSH QSHIFT [facility] Last Admin: 05/21/25 08:14 Dose: 3 ml Thiamine HCl (Thiamine Hcl 100 Mg Tablet) 100 mg PO DAILY [facility] Stop: 05/23/25 10:44 Last Admin: 05/21/25 08:08 Dose: 100 mg Allergies Allergies Allergy/AdvReac Type Severity Reaction Status Date / Time No Known Allergies Allergy Verified 05/20/25 08:37 Assessment & Plan Assessment & Plan (1) Alcohol use disorder, severe, dependence: Status: Acute Code(s): F10.20 - Alcohol dependence, uncomplicated Assessment and Plan: restart naltrexone --patient declined rx stating he has a new bottle at home follow up with [facility] --director group sales confirmed appt 05/22 @10:30--may need to be rescheduled depending on dispo from here. continue thiamine and folic acid outpatient (which he says he also takes daily) (2) Alcohol withdrawal: Qualifiers: Complication of substance-induced condition: with unspecified complication Qualified Code(s): F10.939 - Alcohol use, unspecified with withdrawal, unspecified Status: Acute Code(s): F10.939 - Alcohol use, unspecified with withdrawal, unspecified Assessment and Plan: pheno taper in place withdrawal sx managed Total time managing care of this patient today _35___ minutes. PMFSH Past Medical History Medical History No known health problems Social History Social History Household Members: Spouse and Children Housing: House Do you presently have visiting nurse or other home services: No Alcohol intake: current Alcohol intake frequency: 3 or more drinks per day Alcohol type: hard liquor Patient Tobacco Use Status: Current everyday Tobacco user Tobacco use type: Cigarette Cigarettes Per Day: 10 Second Hand Smoke Exposure: No
--- NOTE | 2025-05-21 10:49 | MHC.CM.PN ---
Pt. lives with his family, PCP is: Dr. Prieto in [place]. Pt. does not use home health services or DME, he can arrange a ride home at [place], DCP: home, self care, CM to follow for [place] needs.
--- NOTE | 2025-05-21 11:17 | PM.DS ---
DS: Providers Provider Date of Service: 05/21/25 Date of admission: 05/20/25 10:18 Date of discharge: 05/21/25 Primary care physician: None Physician Consults: 05/20/25 12:26 Addiction Medicine Provider Routine Consulting Provider: Addiction Covering Reason for consultation: alcohol withdrawal Has provider been notified: No Attending physician on discharge: Aleks Chavez Discharging clinician: Aleks Chavez DS: Diagnosis Discharge Diagnosis (1) Alcohol use disorder, severe, dependence: Status: Acute (2) Alcohol withdrawal: Status: Acute DS: Summary Hospital Course Hospital Course: as per HPI:Pt with medical hx alcohol use who presented to ed with withdrawal sx. Upon my encounter with pt in ed, he appears mildy restless, His family is at bedside. He states that his last drink was over 24 hrs ago and he drink 2-3 pints everyday and had never had withdrawal sx before. He also complains of abd pain on rt and left side of abdomen and states it gets worse with coughing. He also has mild nausea. He denies any fever, chills, focal weakness, chest pain, diarrhea, vomiting, BOYCE or syncope. He states that he wants to seek help for his alcohol dependence. Hospital course: Alcohol withdrawal: Started on phenobarb protocol will see me improving significantly, CIWA scale is 0. Patient was strongly advised to abstain from alcohol. Added p.r.n. clonidine. dyspesia vs possible alcoholic gastritis -improved with omperazole, continue omeprazole. Elevated LFT : Possible likely elevated due to alcohol use, Hepatitis a,b,c serolgies nonreactive, LFTs in slowly improving, monitor LFTs outpatient. Patient was strongly advised to abstain from alcohol also. Follow LFT outpatient with PCP Dr. Prieto as per patient. Mild elevated blood pressure initially likely in the setting of alcohol withdrawal: Improved, lifestyle modifications advised including alcohol abstinence. Plan: Continue omeprazole, p.r.n. clonidine limited supply given. Monitor LFT outpatient Monitor blood pressure outpatient Follow-up with Dr. Rueda goals office Above management discussed with the patient in detail length he understand and in agreement with the above plan, time spent 45 minute. All question answered. Staff was present during conversation. Time Attestation Total time managing care of this patient today: 45 mintues. Discharge Coordination Time (in mins): 45 min Quality: Safe Use of Opioids Does Pt have an Active Cancer Diagnosis on the Problem List?: No Quality: Stroke Does the patient have a stroke diagnosis?: No Physical Exam Exam: Exam: A&Ox3. awake and alert Heart rrr,s1s2 heard. Lungs: CTA, no wheezing or rales Abdomen: Soft NT, ND extremities: no edema or cyanosis neuro: restless, no focal weakness, sensations intact, mild tremors in hands psych: cooperative Skin: no rash Vital Signs: Vital Signs: Last Vital Signs Temp 97.1 F 05/21/25 07:16 Pulse 90 05/21/25 07:16 Resp 18 05/21/25 07:16 BP 135/83 05/21/25 07:16 Pulse Ox 97 05/21/25 07:16 O2 Del Method Room Air 05/21/25 07:16 BMI result Body Mass Index 21.4 DS: Data Data Completed and Pending Labs on day of discharge: Laboratory Results - last 24 hr 05/20/25 05/20/25 05/21/25 08:49 11:14 05:39 WBC 6.2 RBC 4.17 L Hgb 15.1 Hct 42.8 MCV 102.6 H MCH 36.2 H MCHC 35.3 RDW 12.7 Plt Count 127 L MPV 10.7 Absolute Nucleated RBC 0.000 Nucleated RBC % (auto) 0.0 Sodium 139 Potassium 4.2 Chloride 102 Carbon Dioxide 28 Anion Gap 13 BUN 14 Creatinine 0.61 Estim Creat Clear Calc 125.6 Estimated GFR > 60 Random Glucose 100 Calcium 9.6 D Magnesium 1.7 Total Bilirubin 0.7 AST 243 H ALT 191 H Alkaline Phosphatase 188 H Total Protein 7.0 Albumin 4.0 Hepatitis A IgM Ab Nonreactive Hep Bs Antigen Negative Hep Bs Antibody NONREACTIVE Hep B Core Total Ab Nonreactive Hepatitis C Ab (EIA) Nonreactive Discharge Plan Discharge Anticipated Discharge Date/Time: 05/21/25 11:02 Patient Disposition: Home, Self-Care Discharge Diagnosis: alcohol abuse , elevated lft's Referrals: [facility] [Provider Group, Addiction Medicine] - 05/22/25 10:30 am Referral Note: Appt is with Dr. Prieto Physician,None [Primary Care Provider, Medical] - 1 Week Discharge Medications: New naltrexone 50 mg tablet 50 mg PO DAILY Qty: 30 0RF nicotine 7 mg/24 hr Patch 24 Hour 7 mg transdermal DAILY Qty: 7 0RF omeprazole 20 mg Capsule,Delayed Release(Dr/Ec) 20 mg PO DAILY@0630 Qty: 60 0RF Continued multivitamin Tablet 1 tab PO DAILY Discharge Orders: Discharge Order (Routine); Ordered 05/21/25 Ordered By: Aleks Chavez Diet: Advance to usual diet Activity on Discharge: As tolerated Stand Alone Forms: Patient Portal Discharge page Print Language: Yoruba Other Ambulatory Orders: Liver Panel (Routine) Timeframe: 1 Week Facility: [facility] - Location: Laboratory Ordered By: Aleks Chavez Care Plan Goals: Alcohol withdrawal: Started on phenobarb protocol will see me improving significantly, CIWA scale is 0. Patient was strongly advised to abstain from alcohol. Added p.r.n. clonidine. dyspesia vs possible alcoholic gastritis -improved with omperazole, continue omeprazole. Elevated LFT : Possible likely elevated due to alcohol use, Hepatitis a,b,c serolgies nonreactive, LFTs in slowly improving, monitor LFTs outpatient. Patient was strongly advised to abstain from alcohol also. Follow LFT outpatient with PCP Dr. Prieto as per patient. Mild elevated blood pressure initially likely in the setting of alcohol withdrawal: Improved, lifestyle modifications advised including alcohol abstinence. Health Concerns: Monitor LFTs, abstain from alcohol. Plan of Treatment: As above. Assessment: As above. Discharge Date/Time: 05/21/25 11:32
[2025-05-21 11:20] VITALS: BP 119/85; PULSE 95; RESP 16; TEMP 36.3; O2SAT 97
== END 2025-05-21 11:32 | disposition home or self-care (01) | DRG 775 ==
LOC: HO.ED 10:14 → HO.EDOVER 10:28 → HO.IMC 17:17
PROVIDERS: Physician Assistant Medical; Admitting Provider Hospitalist; Emergency Provider Emergency Medicine; PCP Emergency Medicine; Visit Provider Internal Medicine
DX: F10.239 Alcohol dependence with withdrawal, unspecified (principal); F17.210 Nicotine dependence, cigarettes, uncomplicated; I10 Essential (primary) hypertension; K29.20 Alcoholic gastritis without bleeding; Z71.6 Tobacco abuse counseling; Z79.899 Other long term (current) drug therapy
CPT/HCPCS: 36415; 80053; 80307; 81001; 81003; 83690; 83735; 85025; 85027; 86704; 86706; 86709; 86803; 87086; 87340; 93005; 99285; J2560; S9485

== ENCOUNTER → 2025-05-20 08:46 | Outpatient (BNV) | payer MEDICAID, SELFPAY | PROVIDERS: Admitting Provider Hospitalist; Emergency Provider Emergency Medicine; Visit Provider Internal Medicine | DX: F10.90 Alcohol use, unspecified, uncomplicated (principal) | CPT/HCPCS: 93010 ==

== ENCOUNTER → 2025-05-20 10:18 | Outpatient (BNV) | payer OTHER, SELFPAY | PROVIDERS: Admitting Provider Hospitalist; Emergency Provider Emergency Medicine; Visit Provider Nurse Practitioner Psychiatric/Mental Health | DX: F10.20 Alcohol dependence, uncomplicated (principal); F10.939 Alcohol use, unspecified with withdrawal, unspecified | CPT/HCPCS: 99232 ==

== ENCOUNTER → 2025-05-20 10:18 | Outpatient (BNV) | payer MEDICAID, SELFPAY | PROVIDERS: Admitting Provider Hospitalist; Emergency Provider Emergency Medicine; Visit Provider Hospitalist | DX: F10.939 Alcohol use, unspecified with withdrawal, unspecified (principal); F10.10 Alcohol abuse, uncomplicated; I10 Essential (primary) hypertension; R10.13 Epigastric pain | CPT/HCPCS: 99223; 99239 ==